=== PATIENT | male | born 1940 | race Caucasian/White ===

== ENCOUNTER 2017-09-02 09:33 | Day surgery (SDC) | payer MEDICARE, OTHER ==
[~2017-09-02 09:33] MED LIST: Lactated Ringers 1,000 ML IV SCH; Sodium Chloride 0.9% 10 ML Syringe FLUSH PRN
[2017-09-02] MEDS ORDERED: Labetalol 100 MG/20 ML MDV IV ONE (13:18)
[2017-09-02] MEDS ORDERED: Propofol 200 MG/20 ML SDV IV ONE (13:18)
[2017-09-02 14:36] VITALS: BP 142/62
--- NOTE | 2017-09-03 09:17 | OR ---
DATE OF OPERATION: 09/02/2017 SURGEON: Crow Dasilva MD PREOPERATIVE DIAGNOSIS: Cataract, left eye. POSTOPERATIVE DIAGNOSIS: Cataract, left eye. OPERATION PERFORMED: Phacoemulsification of cataract left eye with placement of Mackenzie, model ZCB00, 20.5 diopter, foldable, posterior chamber intraocular lens. DESIGN LEADER: None. DESCRIPTION OF PROCEDURE: Peribulbar anesthetic was performed using a mixture of 2% lidocaine with W[place]ase. The patient was prepped and draped in the usual fashion. A 3 mm fornix based conjunctival flap was performed at the 10 o'clock position. Hemostasis was obtained using diathermy, and a 2.8 mm grooved near clear corneal incision was then made. A stab incision was made into the anterior chamber at the 12 o'clock position and a second stab wound incision was made underlying the grooved near clear corneal incision. Viscoat was instilled into the anterior chamber, and a continuous tear capsulotomy was performed. Hydrodissection was accomplished with balanced salt solution and the nucleus was removed in a divide and conquer fashion. The remaining cortical material was removed with the irrigation and aspiration unit. Viscoat was instilled into the anterior chamber, and an ANTONIO, Mackenzie, model ZCB00, 20.5 diopter, foldable, posterior chamber intraocular lens was placed into the capsular bag, the haptics being positioned at the 1 and 7 o'clock positions. The residual Viscoat was removed from the anterior chamber and the anterior chamber reformed with balanced salt solution. The wound was checked and noted to be watertight. The conjunctiva was secured in its original position with diathermy. Alphagan and Maxitrol Ointment were then placed into the patient's eye. The patient tolerated the procedure well and it was without complication. Elapsed phacoemulsification time was 51.9 seconds. Postoperative instructions as related to activities as well as medications were reviewed with the patient. The patient was instructed to return to see me on the day following surgery for the first postoperative check. The patient was also instructed to contact me prior to that time if the patient were to have any problems. /[id number] DEG/MODL CC: TANGELA REHMAN MD, [facility]
== END 2017-09-02 14:50 | disposition home or self-care (01) ==
LOC: FB.SDS 09:33
PROVIDERS: ATTEND Ophthalmology
DX: H26.9 Unspecified cataract (principal); E11.22 Type 2 diabetes mellitus with diabetic chronic kidney disease; N18.3 Chronic kidney disease, stage 3 (moderate); F41.9 Anxiety disorder, unspecified; G89.29 Other chronic pain; M54.5 Low back pain; I73.9 Peripheral vascular disease, unspecified; E78.5 Hyperlipidemia, unspecified; I25.10 Atherosclerotic heart disease of native coronary artery without angina pectoris; Z90.49 Acquired absence of other specified parts of digestive tract; Z98.890 Other specified postprocedural states; Z88.0 Allergy status to penicillin; Z88.8 Allergy status to other drugs, medicaments and biological substances; Z79.899 Other long term (current) drug therapy; Z87.891 Personal history of nicotine dependence; J30.2 Other seasonal allergic rhinitis
CPT/HCPCS: 66984; 82962; A4217; C1780; J2704; J7120; 00142-QZ

== ENCOUNTER 2017-10-07 07:34 | Day surgery (SDC) | payer MEDICARE, OTHER ==
[~2017-10-07 07:34] MED LIST changes: -Sodium Chloride 0.9% 10 ML Syringe FLUSH PRN
[2017-10-07] MEDS ORDERED: Sodium Chloride 0.9% 10 ML Syringe FLUSH PRN (08:30)
[2017-10-07] MEDS ORDERED: Propofol 200 MG/20 ML SDV IV ONE (09:15)
[2017-10-07 10:42] VITALS: BP 132/67
--- NOTE | 2017-10-08 10:28 | OR ---
DATE OF OPERATION: 10/07/2017 SURGEON: Crow Dasilva MD PREOPERATIVE DIAGNOSIS: Cataract, right eye. POSTOPERATIVE DIAGNOSIS: Cataract, right eye. PROCEDURES: Phacoemulsification of cataract, right eye with the placement of an Mackenzie, model ZCB00, 20.5 diopter, foldable, posterior chamber intraocular lens. STORE PROMOTER: None. DESCRIPTION OF PROCEDURE: Peribulbar anesthetic was performed using a mixture of 2% lidocaine with Wydase. The patient was prepped and draped in the usual fashion. A 3 mm fornix based conjunctival flap was performed at the 10 o'clock position. Hemostasis was obtained using diathermy, and a 2.8 mm grooved near clear corneal incision was then made. A stab incision was made into the anterior chamber at the 12 o'clock position and a second stab wound incision was made underlying the grooved near clear corneal incision. Viscoat was instilled into the anterior chamber, and a continuous tear capsulotomy was performed. Hydrodissection was accomplished with balanced salt solution, and the nucleus was removed in a divide and conquer fashion. The remaining cortical material was removed with the irrigation and aspiration unit. Viscoat was instilled into the anterior chamber, and an Mackenzie, model ZCB00, 20.5 diopter, foldable, posterior chamber intraocular lens was placed into the capsular bag, the haptics being positioned at the 1 and 7 o'clock positions. The residual Viscoat was removed from the anterior chamber and the anterior chamber reformed with balanced salt solution. The wound was checked and noted to be watertight. The conjunctiva was secured in its original position with diathermy. Alphagan and Maxitrol Ointment were then placed into the patient's eye. The patient tolerated the procedure well and it was without complication. Elapsed phacoemulsification time was 21.6 seconds. Postoperative instructions as related to activities, as well as medications, were reviewed with the patient. The patient was instructed to return to see me on the day following surgery for the first postoperative check. The patient was also instructed to contact me prior to that time if the patient were to have any problems. ADDENDUM: Because of the patient's borderline pupillary dilation, as a result of usage of Flomax, 0.2 mL of a mixture of phenylephrine, lidocaine, and balanced salt solution were instilled into the anterior chamber. This helped to maintain adequate pupillary dilation throughout the course of the surgery. /[id number] DEG/MODL CC: TANGELA REHMAN PA-C MTDD
== END 2017-10-07 10:49 | disposition home or self-care (01) ==
LOC: FB.SDS 07:34
PROVIDERS: ATTEND Ophthalmology
DX: H26.9 Unspecified cataract (principal); I25.10 Atherosclerotic heart disease of native coronary artery without angina pectoris; I73.9 Peripheral vascular disease, unspecified; F41.9 Anxiety disorder, unspecified; E78.5 Hyperlipidemia, unspecified; E11.22 Type 2 diabetes mellitus with diabetic chronic kidney disease; N18.3 Chronic kidney disease, stage 3 (moderate); Z90.49 Acquired absence of other specified parts of digestive tract; Z95.820 Peripheral vascular angioplasty status with implants and grafts; Z79.82 Long term (current) use of aspirin; Z79.899 Other long term (current) drug therapy; Z87.891 Personal history of nicotine dependence; J30.2 Other seasonal allergic rhinitis
CPT/HCPCS: 00142; 66984; 82962; C1780; J2704; J7120

== ENCOUNTER 2017-11-04 12:43 | Observation (INO) | payer MEDICARE, OTHER ==
[2017-11-04] MEDS ORDERED: Sodium Chloride 0.9% 10 ML Syringe FLUSH PRN (12:53)
--- NOTE | 2017-11-04 12:53 | EDM.PDOC ---
ED HPI GENERAL MEDICAL PROBLEM - General Stated Complaint: SYNCOPE Time Seen by Provider: 11/04/17 12:43 Source of Information: Reports: Patient, EMS, Family History Limitations: Reports: Physical Impairment - History of Present Illness INITIAL COMMENTS - FREE TEXT/NARRATIVE: 77 years old w m with metabolic syndrome, DM, Obesity, HTN, H/O caritid stenosis, came by EMS to the ed after he passed out at the while at his eye doctor's office having holding his head backwards and to the side. Pt was not responding for about 1-2 minutes, (witnessed) was present. Pt was ashen jimenez and pale as he arrived her in the ed. BP was 116/67 pulse 60 temp 36.4 O2 sat 92% on RA. No C/P, not diaphoretic. ECG showed a NSR with ST depression 1 mm ant lat leads. No other acute medical issues at time time. Onset: Today Onset Date: 11/04/17 Onset Time: 12:00 Duration: Minutes:, Intermittent Location: Reports: Generalized Quality: Reports: Other (passed out) Severity: Moderate Improves with: Reports: Rest Worsens with: Reports: Movement Context: Reports: Other (Passed out while at he ophtalmologist's office) Associated Symptoms: Reports: Syncope, Weakness, Other (pale) - Related Data Allergies Allergy/AdvReac Type Severity Reaction Status Date / Time ezetimibe [From Zetia] Allergy Muscle Verified 11/04/17 12:49 Aches hydrocodone Allergy Hallucinati Verified 11/04/17 12:49 ons oxycodone Allergy Hallucinati Verified 11/04/17 12:49 ons Penicillins Allergy Swelling Verified 11/04/17 12:49 Usquyex-Moj-Fzu Reductase Allergy Muscle Verified 11/04/17 12:49 Inhibitor Aches Home Meds: Home Meds Allopurinol [Zyloprim] 150 mg PO BEDTIME 01/06/15 [History] Celecoxib [CeleBREX] 200 mg PO DAILY PRN 01/06/15 [History] Desoximetasone [Topicort 0.05% Gel] 1 applic TOP TID PRN 01/06/15 [History] Esomeprazole [NexIUM] 40 mg PO DAILY 01/06/15 [History] Ibuprofen/Diphenhydramine Cit [Advil PM Caplet] 2 tab PO BEDTIME 01/06/15 [ History] Pramoxine HCl/Mineral Oil/Znox [Tucks Hemorrhoidal Ointment] 28.3 gm RC ASDIRECTED 01/06/15 [History] Sertraline [Zoloft] 25 mg PO BEDTIME 01/06/15 [History] Sucralfate [Carafate] 1 tsp PO DAILY PRN 01/06/15 [History] glyBURIDE [Glyburide] 5 mg PO BEDTIME 01/06/15 [History] valACYclovir [Valtrex] 500 mg PO BID PRN 01/06/15 [History] Carvedilol [Coreg] 12.5 mg PO BID 09/01/17 [History] Clopidogrel [Plavix] 37.5 mg PO DAILY 09/01/17 [History] Isosorbide Mononitrate [Imdur] 30 mg PO DAILY 09/01/17 [History] Losartan [Cozaar] 25 mg PO DAILY 09/01/17 [History] Pioglitazone [Actos] 30 mg PO DAILY 09/01/17 [History] Triamcinolone Acetonide [Triamcinolone Acetonide 0.1% Crm] 1 applic TOP TID PRN 09/01/17 [History] Aspirin [Low Dose Aspirin EC] 81 mg PO DAILY 11/04/17 [History] LORazepam 0.5 mg PO BEDTIME 11/04/17 [History] LORazepam 0.5 mg PO DAILY@2130 11/04/17 [History] Oxymetazoline HCl [Dristan] 1 spray NASBOTH BEDTIME 11/04/17 [History] Super Beta Prostate 0.5 tab PO BEDTIME 11/04/17 [History] Super Beta Prostate 1 tab PO DAILY 11/04/17 [History] Past Medical History HEENT History: Reports: Allergic Rhinitis, Cataract Cardiovascular History: Reports: CAD, Heart Failure, High Cholesterol, Hypertension, RI, PVD, Other (See Below) Other Cardiovascular History: MITRIAL REGURG Gastrointestinal History: Reports: Colon Polyp, PUD Genitourinary History: Reports: Chronic Renal Insuffiency, Renal Disease Other Genitourinary History: CKD, RENAL ARTERY STENOSIS 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 Musculoskeletal History: Reports: Back Pain, Chronic, Gout Other Musculoskeletal History: DJD Psychiatric History: Reports: Anxiety Endocrine/Metabolic History: Reports: Diabetes, Type II Hematologic History: Reports: Iron Deficiency Immunologic History: Reports: None Dermatologic History: Reports: Eczema, Other (See Below) Other Dermatologic History: RECURRENT HERPES LABIALIS - Past Surgical History HEENT Surgical History: Reports: Adenoidectomy, Tonsillectomy Cardiovascular Surgical History: Reports: Carotid Endarterectomy, Coronary Artery Bypass Other Cardiovascular Surgeries/Procedures: ANGIOPLASTY 2015 IN SEPT AND 0CT, ALSO 2016 GI Surgical History: Reports: Appendectomy, Colonoscopy, EGD Musculoskeletal Surgical History: Reports: Hip Replacement, ORIF Social & Family History - Tobacco Use Smoking Status *Q: Former Smoker Used Tobacco, but Quit: Yes Month Tobacco Last Used: 1998 - Alcohol Use Days Per Week of Alcohol Use: 0 - Recreational Drug Use Recreational Drug Use: No ED ROS GENERAL - Review of Systems Review Of Systems: See Below Constitutional: Reports: Weakness, Decreased Appetite HEENT: Reports: No Symptoms Respiratory: Reports: No Symptoms Cardiovascular: Reports: Blood Pressure Problem, Lightheadedness, Syncope Endocrine: Reports: High Glucose GI/Abdominal: Reports: No Symptoms : Reports: No Symptoms Musculoskeletal: Reports: No Symptoms Skin: Reports: Pallor Neurological: Reports: Syncope Psychiatric: Reports: No Symptoms Hematologic/Lymphatic: Reports: No Symptoms Immunologic: Reports: No Symptoms - Physical Exam Exam: See Below Exam Limited By: Physical Impairment General Appearance: Alert, WD/WN, Moderate Distress Eye Exam: Bilateral Eye: Normal Inspection (pale sclera) Ears: Normal External Exam Nose: Normal Inspection Throat/Mouth: Normal Lips, Normal Gums, No Airway Compromise Head Exam: Atraumatic, Normocephalic Neck: Carotid Bruit, Limited Range of Motion, Other (surgical scar r neck, ant aspect) Respiratory/Chest: No Respiratory Distress Cardiovascular: Normal Peripheral Pulses, Regular Rate, Rhythm, No Edema GI/Abdominal: Normal Bowel Sounds (Male) Exam: Deferred Rectal (Males) Exam: Normal Exam, Normal Rectal Tone, Other (quiac stool neg) Neuro Exam (Abbreviated): Alert, Oriented, CN II-XII Intact, Normal Cognition, Abnormal Gait (due to weakness) Back Exam: Normal Inspection, Full Range of Motion Extremities: Normal Inspection, Normal Range of Motion Psychiatric: Normal Affect, Normal Mood Skin Exam: Warm, Dry, Intact, Pallor EKG INTERPRETATION EKG Date: 11/04/17 Time: 12:55 Rhythm: NSR Rate (Beats/Min): 55 [place]: Normal P-Wave: Present QRS: Normal ST-T: Depressed QT: Normal Comparison: NA - No Prior EKG Course - Vital Signs Text/Narrative:: 77 years old w m with metabolic syndrome, DM, Obesity, CAD, HTN, H/O caritid stenosis, came by EMS to the ed after he passed out at the while at his eye doctor's office having holding his head backwards and to the side. No CP. Pt was not responding for about 1-2 minutes, (witnessed) was present. Pt was ashen jimenez and pale as he arrived her in the ed. BP was 116/67 pulse 60 temp 36.4 O2 sat 92% on RA. No C/P, not diaphoretic. ECG showed a NSR with ST depression 1 mm ant lat leads. No old ECG. No other acute medical issues at time time. PE: Pale, weak Labs: Quiac stool neg, brown stool HGB 7.6, TIBC, VIT 12 and ferritin level are pending. PRO BNP 3729 Impression: Syncopal episode, Anemia, NIDDM, CAD, H/O carotid stenosis, CHF Tx: NS. Protonix, T&C and 1 unit of blood was ordered 2.01 pm Consultation: Dr. Mahoney, Hospitalist: Accepted pt for admission, OBS with tele, 1 unit of PRBC only Reexam: Improved Plan: Admit to OBS tele Last Recorded V/S: Last Vital Signs Temp 36.6 C 11/05/17 08:00 Pulse 84 11/05/17 08:00 Resp 20 11/05/17 08:00 BP 124/56 L 11/05/17 10:41 Pulse Ox 98 11/05/17 08:00 - Orders/Labs/Meds Labs: Laboratory Tests 11/04/17 11/04/17 11/04/17 Range/Units 13:05 13:05 13:05 WBC 6.9 (4.5-12.0) X10-3/uL RBC 3.37 L (4.30-5.75) x10(6)uL Hgb 7.6 L (11.5-15.5) g/dL Hct 24.2 L (30.0-51.3) % MCV 71.7 L (80-96) fL MCH 22.6 L (27.7-33.6) pg MCHC 31.5 L (32.2-35.4) g/dL RDW 16.3 H (11.5-15.5) % Plt Count 300 (125-369) X10(3)uL MPV 7.3 L (7.4-10.4) fL Neut % (Auto) 72.8 (46-82) % Lymph % (Auto) 16.2 (13-37) % [place] % (Auto) 8.0 (4-12) % Eos % (Auto) 3 (1.0-5.0) % Baso % (Auto) 1 (0-2) % Neut # (Auto) 5.1 (1.6-8.3) # Lymph # (Auto) 1.1 (0.6-5.0) # [place] # (Auto) 0.5 (0.0-1.3) # Eos # (Auto) 0.2 (0.0-0.8) # Baso # (Auto) 0.0 (0.0-0.2) # PT 11.0 (8.7-11.1) INR 1.09 (0.89-1.13) Sodium 137 (135-145) mmol/L Potassium 4.1 (3.5-5.3) mmol/L Chloride 104 (100-110) mmol/L Carbon Dioxide 23 (21-32) mmol/L BUN 37 H (7-18) mg/dL Creatinine 1.8 H (0.70-1.30) mg/dL Est Cr Clr Drug Dosing 34.92 mL/min Estimated GFR (MDRD) 37 L (>60) BUN/Creatinine Ratio 20.6 H (9-20) Glucose 191 H (80-116) mg/dL Calcium 9.1 (8.6-10.2) mg/dL Iron (45-190) ug/dL TIBC (157-537) ug/dL Iron Saturation (15-55) % Unsaturated IBC (112-347) ug/dL Ferritin (11-450) ng/mL Total Bilirubin 0.4 (0.1-1.3) mg/dL Direct Bilirubin 0.06 L (0.10-0.20) mg/dL AST 16 (5-25) IU/L ALT 14 (12-36) U/L Alkaline Phosphatase 77 (56-112) IU/L Troponin I (<0.017-0.056) ng/mL NT-Pro-B Natriuret Pep (<=450) pg/mL Total Protein 6.9 (6.0-8.0) g/dL Albumin 3.3 (3.2-4.6) g/dL Amylase 57 (25-115) U/L Vitamin B12 (193-986) pg/mL Blood Type Gel Antibody Screen Crossmatch 11/04/17 11/04/17 11/04/17 Range/Units 13:05 13:05 13:05 WBC (4.5-12.0) X10-3/uL RBC (4.30-5.75) x10(6)uL Hgb (11.5-15.5) g/dL Hct (30.0-51.3) % MCV (80-96) fL MCH (27.7-33.6) pg MCHC (32.2-35.4) g/dL RDW (11.5-15.5) % Plt Count (125-369) X10(3)uL MPV (7.4-10.4) fL Neut % (Auto) (46-82) % Lymph % (Auto) (13-37) % [place] % (Auto) (4-12) % Eos % (Auto) (1.0-5.0) % Baso % (Auto) (0-2) % Neut # (Auto) (1.6-8.3) # Lymph # (Auto) (0.6-5.0) # [place] # (Auto) (0.0-1.3) # Eos # (Auto) (0.0-0.8) # Baso # (Auto) (0.0-0.2) # PT (8.7-11.1) INR (0.89-1.13) Sodium (135-145) mmol/L Potassium (3.5-5.3) mmol/L Chloride (100-110) mmol/L Carbon Dioxide (21-32) mmol/L BUN (7-18) mg/dL Creatinine (0.70-1.30) mg/dL Est Cr Clr Drug Dosing mL/min Estimated GFR (MDRD) (>60) BUN/Creatinine Ratio (9-20) Glucose (80-116) mg/dL Calcium (8.6-10.2) mg/dL Iron (45-190) ug/dL TIBC (157-537) ug/dL Iron Saturation (15-55) % Unsaturated IBC (112-347) ug/dL Ferritin (11-450) ng/mL Total Bilirubin (0.1-1.3) mg/dL Direct Bilirubin (0.10-0.20) mg/dL AST (5-25) IU/L ALT (12-36) U/L Alkaline Phosphatase (56-112) IU/L Troponin I 0.024 (<0.017-0.056) ng/mL NT-Pro-B Natriuret Pep 3729 H* (<=450) pg/mL Total Protein (6.0-8.0) g/dL Albumin (3.2-4.6) g/dL Amylase (25-115) U/L Vitamin B12 329 (193-986) pg/mL Blood Type A NEGATIVE Gel Antibody Screen Negative Crossmatch See Detail 11/04/17 11/04/17 Range/Units 13:05 13:05 WBC (4.5-12.0) X10-3/uL RBC (4.30-5.75) x10(6)uL Hgb (11.5-15.5) g/dL Hct (30.0-51.3) % MCV (80-96) fL MCH (27.7-33.6) pg MCHC (32.2-35.4) g/dL RDW (11.5-15.5) % Plt Count (125-369) X10(3)uL MPV (7.4-10.4) fL Neut % (Auto) (46-82) % Lymph % (Auto) (13-37) % [place] % (Auto) (4-12) % Eos % (Auto) (1.0-5.0) % Baso % (Auto) (0-2) % Neut # (Auto) (1.6-8.3) # Lymph # (Auto) (0.6-5.0) # [place] # (Auto) (0.0-1.3) # Eos # (Auto) (0.0-0.8) # Baso # (Auto) (0.0-0.2) # PT (8.7-11.1) INR (0.89-1.13) Sodium (135-145) mmol/L Potassium (3.5-5.3) mmol/L Chloride (100-110) mmol/L Carbon Dioxide (21-32) mmol/L BUN (7-18) mg/dL Creatinine (0.70-1.30) mg/dL Est Cr Clr Drug Dosing mL/min Estimated GFR (MDRD) (>60) BUN/Creatinine Ratio (9-20) Glucose (80-116) mg/dL Calcium (8.6-10.2) mg/dL Iron 17 L (45-190) ug/dL TIBC 341 (157-537) ug/dL Iron Saturation 5 L (15-55) % Unsaturated IBC 324 (112-347) ug/dL Ferritin 19 (11-450) ng/mL Total Bilirubin (0.1-1.3) mg/dL Direct Bilirubin (0.10-0.20) mg/dL AST (5-25) IU/L ALT (12-36) U/L Alkaline Phosphatase (56-112) IU/L Troponin I (<0.017-0.056) ng/mL NT-Pro-B Natriuret Pep (<=450) pg/mL Total Protein (6.0-8.0) g/dL Albumin (3.2-4.6) g/dL Amylase (25-115) U/L Vitamin B12 (193-986) pg/mL Blood Type Gel Antibody Screen Crossmatch Meds: Medications Discontinued Medications Generic Name Dose Route Start Last Admin Trade Name Freq PRN Reason Stop Dose Admin Allopurinol 150 mg 11/04/17 21:00 11/04/17 21:00 Zyloprim PO Not Given BEDTIME [facility] Aspirin 81 mg 11/05/17 09:00 11/05/17 10:33 Halfprin PO 81 mg DAILY [facility] Administration Carvedilol 12.5 mg 11/04/17 21:00 11/05/17 10:42 Coreg PO Not Given BID [facility] Celecoxib 200 mg 11/04/17 16:51 Celebrex PO DAILY PRN PAIN Clopidogrel Bisulfate 37.5 mg 11/05/17 09:00 11/05/17 10:42 Plavix PO Not Given DAILY ANGE Glyburide 5 mg 11/04/17 21:00 11/04/17 20:44 Micronase PO 5 mg BEDTIME ANGE Administration Sodium Chloride 1,000 mls @ 125 mls/hr 11/04/17 13:45 11/04/17 15:35 Normal Saline IV 50 mls/hr ASDIRECTED ANGE Infusion Sodium Chloride 1,000 mls @ 50 mls/hr 11/04/17 14:45 Normal Saline IV ASDIRECTED ANGE Sodium Chloride 250 mls @ 100 mls/hr 11/04/17 15:45 Normal Saline IV ASDIRECTED ANGE Pantoprazole Sodium 40 mg/ 100 mls @ 200 mls/hr 11/04/17 19:34 11/04/17 20:33 Sodium Chloride IV 11/04/17 20:03 200 mls/hr .BOLUS ONE Administration Isosorbide Mononitrate 30 mg 11/05/17 06:00 11/05/17 06:27 Imdur PO 30 mg DAILY@0600 ANGE Administration Lorazepam 0.5 mg 11/04/17 21:00 11/04/17 20:42 Ativan PO 0.5 mg BEDTIME ANGE Administration Losartan Potassium 25 mg 11/05/17 09:00 11/05/17 10:41 Cozaar PO 25 mg DAILY ANGE Administration Non-Formulary Medication 1 applic 11/04/17 16:51 Desoximetasone [Topicort 0.05% Gel] TOP TID PRN Rash Nexium 40mg *Ptom 0 mg 11/05/17 06:00 11/05/17 06:26 PO 40 mg DAILY@0600 ANGE Administration Advil Pm (Ibuprofen 0 tab 11/04/17 21:00 11/04/17 20:44 200mg/ PO 2 tab Diphenhydramine 38mg BEDTIME ANGE Administration ) Non-Formulary Medication 28.3 gm 11/04/17 17:00 Pramoxine Hcl/Mineral Oil/Znox [Tucks Hemorrhoidal Ointment] ASDIRECTED ANGE Non-Formulary Medication 1 tsp 11/04/17 16:51 Sucralfate [Carafate] PO DAILY PRN Gas Super Beta Prostate 0 tab 11/04/17 21:00 11/04/17 21:00 *Ptom PO 0.5 tab BEDTIME ANGE Administration Super Beta Prostate 0 tab 11/05/17 09:00 11/05/17 10:33 *Ptom PO 1 tab DAILY ANGE Administration Non-Formulary Medication 1 applic 11/04/17 16:51 Triamcinolone Acetonide [Triamcinolone Acetonide 0.1% Crm] TOP TID PRN Rash Ondansetron HCl 4 mg 11/04/17 14:06 Zofran IV Q4H PRN Nausea/Vomiting Oxymetazoline HCl 0 ml 11/04/17 21:00 11/04/17 20:40 Afrin Original 0.05% Nasal [place] GUEVARA 2 applic BEDTIME ANGE Administration Pantoprazole Sodium 40 mg 11/04/17 14:45 11/04/17 17:08 Protonix Iv IV 11/04/17 14:46 40 mg ONETIME ONE Administration Pioglitazone HCl 30 mg 11/05/17 09:00 11/05/17 10:31 Actos PO 30 mg DAILY ANGE Administration Sertraline HCl 25 mg 11/04/17 21:00 11/04/17 21:00 Zoloft PO 25 mg BEDTIME ANGE Administration Sodium Chloride 10 ml 11/04/17 12:53 Saline Flush FLUSH ASDIRECTED PRN Keep Vein Open Valacyclovir HCl 500 mg 11/05/17 17:00 Valtrex PO BID PRN COLD SORES Departure - Departure Time of Disposition: 16:00 Disposition: Admitted As Inpatient 65 Condition: Fair Clinical Impression: Syncopal episodes Qualifiers: Syncope type: vasovagal syncope Qualified Code(s): R55 - Syncope and collapse - Discharge Information
[2017-11-04] MEDS ORDERED: Sodium Chloride 0.9% 1,000 ML IV SCH ×2 (13:45→14:45)
[2017-11-04] MEDS ORDERED: Ondansetron 4 MG/2 ML SDV IV PRN (14:06)
[2017-11-04] MEDS ORDERED: Pantoprazole 40 MG in Sodium Chloride 0.9% 100 ML IV ONE ×2 (14:18→19:34)
[2017-11-04] MEDS ORDERED: Pantoprazole 40 MG Vial IV ONE (14:45)
[2017-11-04] MEDS ORDERED: Sodium Chloride 0.9% 250 ML IV SCH (15:45)
--- NOTE | 2017-11-04 16:47 | PCM.HP ---
H&P History of Present Illness - General Date of Service: 11/04/17 Admit Problem/Dx: Admission Diagnosis/Problem Admission Diagnosis/Problem Syncope Source of Information: Patient, Old Records - History of Present Illness Initial Comments - Free Text/Narative: 77-year-old male admitted through the emergency room because of syncope. He was having cataract surgery/check up and staying one position for a while when he got up he collapsed and fainted. He stated that he's had this before when he felt lightheaded in the similar position. Is being admitted for observation. He has a history of CAD, type 2 diabetes, iron deficiency anemia, chronic kidney disease, para been relatively stable. Hemoglobin is about 10.2. However emergency room it was found to be 7.9. He denies any bleeding areas attendances. It's been noted by the pharmacist and nursing staff that this noncontrast medications, taking the month we'll sometimes doubling up on some doses - Related Data Allergies/Adverse Reactions: Allergies Allergy/AdvReac Type Severity Reaction Status Date / Time ezetimibe [From Zetia] Allergy Muscle Verified 11/04/17 12:49 Aches hydrocodone Allergy Hallucinati Verified 11/04/17 12:49 ons oxycodone Allergy Hallucinati Verified 11/04/17 12:49 ons Penicillins Allergy Swelling Verified 11/04/17 12:49 Furhlev-Gns-Wmk Reductase Allergy Muscle Verified 11/04/17 12:49 Inhibitor Aches Home Medications: Home Meds Allopurinol [Zyloprim] 150 mg PO BEDTIME 01/06/15 [History] Celecoxib [CeleBREX] 200 mg PO DAILY PRN 01/06/15 [History] Desoximetasone [Topicort 0.05% Gel] 1 applic TOP TID PRN 01/06/15 [History] Esomeprazole [NexIUM] 40 mg PO DAILY 01/06/15 [History] Ibuprofen/Diphenhydramine Cit [Advil PM Caplet] 2 tab PO BEDTIME 01/06/15 [ History] Pramoxine HCl/Mineral Oil/Znox [Tucks Hemorrhoidal Ointment] 28.3 gm RC ASDIRECTED 01/06/15 [History] Sertraline [Zoloft] 25 mg PO BEDTIME 01/06/15 [History] Sucralfate [Carafate] 1 tsp PO DAILY PRN 01/06/15 [History] glyBURIDE [Glyburide] 5 mg PO BEDTIME 01/06/15 [History] valACYclovir [Valtrex] 500 mg PO BID PRN 01/06/15 [History] Carvedilol [Coreg] 12.5 mg PO BID 09/01/17 [History] Clopidogrel [Plavix] 37.5 mg PO DAILY 09/01/17 [History] Isosorbide Mononitrate [Imdur] 30 mg PO DAILY 09/01/17 [History] Losartan [Cozaar] 25 mg PO DAILY 09/01/17 [History] Pioglitazone [Actos] 30 mg PO DAILY 09/01/17 [History] Triamcinolone Acetonide [Triamcinolone Acetonide 0.1% Crm] 1 applic TOP TID PRN 09/01/17 [History] Aspirin [Low Dose Aspirin EC] 81 mg PO DAILY 11/04/17 [History] LORazepam 0.5 mg PO BEDTIME 11/04/17 [History] LORazepam 0.5 mg PO DAILY@2130 11/04/17 [History] Oxymetazoline HCl [Dristan] 1 spray NASBOTH BEDTIME 11/04/17 [History] Super Beta Prostate 0.5 tab PO BEDTIME 11/04/17 [History] Super Beta Prostate 1 tab PO DAILY 11/04/17 [History] Past Medical History HEENT History: Reports: Allergic Rhinitis, Cataract Cardiovascular History: Reports: CAD, Heart Failure, High Cholesterol, Hypertension, LA, PVD, Other (See Below) Other Cardiovascular History: MITRIAL REGURG Gastrointestinal History: Reports: Colon Polyp, PUD Genitourinary History: Reports: Chronic Renal Insuffiency, Renal Disease Other Genitourinary History: CKD, RENAL ARTERY STENOSIS 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 Musculoskeletal History: Reports: Back Pain, Chronic, Gout Other Musculoskeletal History: DJD Psychiatric History: Reports: Anxiety Endocrine/Metabolic History: Reports: Diabetes, Type II Hematologic History: Reports: Iron Deficiency Immunologic History: Reports: None Dermatologic History: Reports: Eczema, Other (See Below) Other Dermatologic History: RECURRENT HERPES LABIALIS - Infectious Disease History Infectious Disease History: Reports: Chicken Pox, Herpes, Measles, Mumps, Shingles - Past Surgical History HEENT Surgical History: Reports: Adenoidectomy, Tonsillectomy Cardiovascular Surgical History: Reports: Carotid Endarterectomy, Coronary Artery Bypass Other Cardiovascular Surgeries/Procedures: ANGIOPLASTY 2015 IN SEPT AND 0CT, ALSO 2016 GI Surgical History: Reports: Appendectomy, Colonoscopy, EGD Musculoskeletal Surgical History: Reports: Hip Replacement, ORIF Social & Family History - Family History Family Medical History: Noncontributory - Tobacco Use Smoking Status *Q: Former Smoker Used Tobacco, but Quit: Yes Month Tobacco Last Used: 1998 Second Hand Smoke Exposure: No - Caffeine Use Caffeine Use: Reports: Coffee Other Caffeine Use: 2-3 cups per day - Alcohol Use Days Per Week of Alcohol Use: 0 - Recreational Drug Use Recreational Drug Use: No H&P Review of Systems - Review of Systems: Review Of Systems: ROS reveals no pertinent complaints other than HPI. Exam - Exam Exam: See Below - Vital Signs Vital Signs: Last Vital Signs Temp 97.6 F 11/04/17 14:35 Pulse 68 11/04/17 14:35 Resp 16 11/04/17 14:35 BP 118/61 11/04/17 14:35 Pulse Ox 100 11/04/17 14:35 Weight: 99.79 kg - Exam General: Alert, Oriented, 4 HEENT: PERRLA, Hearing Intact, Mucosa Moist & Vass, Nares Patent, Normal Nasal Septum, Posterior Pharynx Clear, Conjunctiva Clear, EOMI, EACs Clear, TMs Clear Neck: Supple, Trachea Midline, 2 Lungs: Clear to Auscultation, Normal Respiratory Effort Cardiovascular: Regular Rate, Regular Rhythm GI/Abdominal Exam: Normal Bowel Sounds, Soft, Non-Tender, No Organomegaly, No Distention, No Abnormal Bruit, No Mass, Pelvis Stable (Male) Exam: No Hernia, Normal Inspection, Normal Prostate, Circumcised Rectal (Males) Exam: Normal Exam, Normal Rectal Tone, Prostate Normal Back Exam: Normal Inspection, Full Range of Motion, NT Extremities: Normal Inspection, Normal Range of Motion, Non-Tender, No Pedal Edema, Normal Capillary Refill Skin: Warm, Dry, Intact Neurological: Cranial Nerves Intact, Reflexes Equal Bilateral Neuro Extensive - Mental Status: Alert, Oriented x3, Normal Mood/Affect, Normal Cognition Neuro Extensive - Motor, Sensory, Reflexes: CN II-XII Intact, Normal Gait, Normal Reflexes Psychiatric: Alert, Normal Affect, Normal Mood - Patient Data Lab Results Last 24 hrs: Laboratory Results - last 24 hr 11/04/17 Range/Units 14:25 Urine Color Yellow (YELLOW) Urine Appearance Clear (CLEAR) Urine pH 5.0 (5.0-6.5) Ur Specific [place] 1.015 (1.010-1.025) Urine Protein Negative (NEGATIVE) mg/dL Urine Glucose (UA) Normal (NEGATIVE) mg/dL Urine Ketones Negative (NEGATIVE) mg/dL Urine Occult Blood Negative (NEGATIVE) Urine Nitrite Negative (NEGATIVE) Urine Bilirubin Small H (NEGATIVE) Urine Urobilinogen Normal (NEGATIVE) mg/dL Ur Leukocyte Esterase Negative (NEGATIVE) Urine RBC Not seen (0) Urine WBC 0-5 (0) Ur Squamous Epith Cells Few H (NS,R,O) Urine Bacteria Few H (NS) Hyaline Casts Moderate H (NS) Urine Mucus Few H (NS) Result Diagrams: 11/05/17 06:10 11/05/17 06:10 Fidel Results Last 24 hrs: Microbiology 11/04/17 14:30 Stool Occult Blood (FIDEL) - Final Stool / Feces NEGATIVE OCCULT BLOOD *Q Meaningful Use (ADM) - VTE *Q VTE Criteria *Q: - Stroke *Q Stroke Criteria *Q: - AMI *Q AMI Criteria *Q: - Problem List (1) Anemia SNOMED Code(s): 945457398 ICD Code: D64.9 - ANEMIA, UNSPECIFIED Status: Acute Current Visit: Yes (2) Syncope SNOMED Code(s): 920596112 ICD Code: R55 - SYNCOPE AND COLLAPSE Status: Acute Current Visit: Yes (3) CAD (coronary artery disease) SNOMED Code(s): 38136006 ICD Code: I25.10 - ATHSCL HEART DISEASE OF [place] CORONARY ARTERY W/O ANG PCTRS Status: Acute Current Visit: Yes (4) Anxiety SNOMED Code(s): 05304959 ICD Code: F41.9 - ANXIETY DISORDER, UNSPECIFIED Status: Acute Current Visit: Yes (5) CKD (chronic kidney disease) SNOMED Code(s): 674562475 ICD Code: N18.9 - CHRONIC KIDNEY DISEASE, UNSPECIFIED Status: Acute Current Visit: Yes (6) Carotid arterial disease SNOMED Code(s): 220960548 ICD Code: I77.9 - DISORDER OF ARTERIES AND ARTERIOLES, UNSPECIFIED Status: Acute Current Visit: Yes (7) Diabetes type 2, controlled SNOMED Code(s): 09123056 ICD Code: E11.9 - TYPE 2 DIABETES MELLITUS WITHOUT COMPLICATIONS Status: Acute Current Visit: Yes Qualifiers: Chronic kidney disease stage: stage 4 (severe) Problem List Initiated/Reviewed/Updated: Yes Orders Last 24hrs: Active Orders 24 hr Category Date Time Status FERRITIN [REF] Routine Lab 11/04/17 13:05 Received IRON AND IRON BINDING CAPACITY [REF] Routine Lab 11/04/17 13:05 Received RED BLOOD CELLS LP [BBK] Stat Lab 11/04/17 13:05 Results Sodium Chloride 0.9% [Normal Saline] 1,000 ml Med 11/04/17 14:45 Active IV ASDIRECTED Sodium Chloride 0.9% [Normal Saline] 250 ml Med 11/04/17 15:45 Active IV ASDIRECTED Transfuse PRBC [Transfuse Red Blood Cells] [COMM] Oth 11/04/17 15:44 Ordered Routine Medication Orders Sodium Chloride (Normal Saline) 1,000 mls @ 50 mls/hr IV ASDIRECTED ANGE Sodium Chloride (Normal Saline) 250 mls @ 100 mls/hr IV ASDIRECTED ANGE Ondansetron HCl (Zofran) 4 mg IV Q4H PRN PRN Reason: Nausea/Vomiting Sodium Chloride (Saline Flush) 10 ml FLUSH ASDIRECTED PRN PRN Reason: Keep Vein Open Assessment/Plan Comment:: Admit for observation with telemetry. I will give him one unit of blood, repeat a CBC the morning to resume his home medications.
[2017-11-04] MEDS ORDERED: Celecoxib 200 MG Cap PO PRN (16:51)
[2017-11-04] MEDS ORDERED: Non-Formulary Medication 1 Each (Triamcinolone Acetonide [Triamcinolone Acetonide 0.1% Crm TOP PRN (16:51)
[2017-11-04] MEDS ORDERED: DESOXIMETASONE TOP PRN (16:51)
[2017-11-04] MEDS ORDERED: SUCRALFATE PO PRN (16:51)
[2017-11-04] MEDS ORDERED: PRAMOXINE HCL RC SCH (17:00)
[2017-11-04] MEDS ORDERED: MINERAL OIL RC SCH (17:00)
[2017-11-04] MEDS ORDERED: ZINC OXIDE RC SCH (17:00)
[2017-11-04] MEDS ORDERED: [UNRECOGNIZED DRUG - OTHER] RC SCH (17:00)
[2017-11-04] MEDS: Carvedilol 12.5 MG Tab *PTOM PO SCH (20:43)
[2017-11-04] MEDS ORDERED: OXYMETAZOLINE 0.05% NAS SCH (21:00)
[2017-11-04] MEDS ORDERED: GLYBURIDE 5 MG PO SCH (21:00)
[2017-11-04] MEDS ORDERED: LORazepam 0.5 MG Tab PO SCH (21:00)
[2017-11-04] MEDS ORDERED: Non-Formulary Medication 1 Each (Fluticasone Propionate [Flonase] 1 SPRAY) NASBOTH SCH (21:00)
[2017-11-04] MEDS ORDERED: ADVIL PM PO SCH (21:00)
[2017-11-04] MEDS ORDERED: Sertraline 25 MG Tab *PTOM PO SCH (21:00)
[2017-11-04] MEDS ORDERED: Allopurinol 300 MG Tab *PTOM PO SCH (21:00)
[2017-11-04] MEDS ORDERED: SUPER BETA PROSTATE PO SCH (21:00)
[2017-11-05] MEDS ORDERED: Isosorbide Mononitrate 30 MG Tab.ER PO SCH (06:00)
[2017-11-05] MEDS ORDERED: NEXIUM 40 MG PO SCH (06:00)
--- NOTE | 2017-11-05 08:39 | PCM.PN ---
- General Info Date of Service: 11/05/17 Admission Dx/Problem (Free Text): Admission Diagnosis/Problem Admission Diagnosis/Problem Syncope Subjective Update: Patient did not sleep well because of the noise. He also also noted to have one black stool. Otherwise complains of no dizziness lightheadedness chest pain shortness of breath or any other bleeding areas. Functional Status: Reports: Pain Controlled, New Symptoms (black stool x1) - Review of Systems General: Reports: No Symptoms HEENT: Reports: No Symptoms Pulmonary: Reports: No Symptoms Cardiovascular: Reports: No Symptoms - Patient Data Vitals - Most Recent: Last Vital Signs Temp 98.7 F 11/05/17 04:00 Pulse 80 11/05/17 04:00 Resp 18 11/05/17 04:00 BP 159/68 H 11/05/17 06:27 Pulse Ox 98 11/05/17 04:00 Weight - Most Recent: 99.79 kg I&O - Last 24 Hours: Intake & Output 11/04/17 11/05/17 11/05/17 22:59 06:59 14:59 Intake Total 822 692 Output Total 350 700 Balance 472 -8 Lab Results Last 24 Hours: Laboratory Results - last 24 hr 11/04/17 11/05/17 11/05/17 Range/Units 14:25 06:10 06:10 WBC 7.9 (4.5-12.0) X10-3/uL RBC 3.52 L (4.30-5.75) x10(6)uL Hgb 8.3 L (11.5-15.5) g/dL Hct 25.5 L (30.0-51.3) % MCV 72.4 L (80-96) fL MCH 23.6 L (27.7-33.6) pg MCHC 32.7 (32.2-35.4) g/dL RDW 16.9 H (11.5-15.5) % Plt Count 280 (125-369) X10(3)uL MPV 7.5 (7.4-10.4) fL Neut % (Auto) 63.9 (46-82) % Lymph % (Auto) 23.3 (13-37) % Wallace % (Auto) 8.5 (4-12) % Eos % (Auto) 4 (1.0-5.0) % Baso % (Auto) 1 (0-2) % Neut # (Auto) 5.1 (1.6-8.3) # Lymph # (Auto) 1.8 (0.6-5.0) # Wallace # (Auto) 0.7 (0.0-1.3) # Eos # (Auto) 0.3 (0.0-0.8) # Baso # (Auto) 0.0 (0.0-0.2) # Sodium 138 (135-145) mmol/L Potassium 4.0 (3.5-5.3) mmol/L Chloride 105 (100-110) mmol/L Carbon Dioxide 24 (21-32) mmol/L BUN 32 H (7-18) mg/dL Creatinine 1.7 H (0.70-1.30) mg/dL Est Cr Clr Drug Dosing 36.98 mL/min Estimated GFR (MDRD) 39 L (>60) BUN/Creatinine Ratio 18.8 (9-20) Glucose 130 H (80-116) mg/dL Calcium 9.2 (8.6-10.2) mg/dL Urine Color Yellow (YELLOW) Urine Appearance Clear (CLEAR) Urine pH 5.0 (5.0-6.5) Ur Specific [place] 1.015 (1.010-1.025) Urine Protein Negative (NEGATIVE) mg/dL Urine Glucose (UA) Normal (NEGATIVE) mg/dL Urine Ketones Negative (NEGATIVE) mg/dL Urine Occult Blood Negative (NEGATIVE) Urine Nitrite Negative (NEGATIVE) Urine Bilirubin Small H (NEGATIVE) Urine Urobilinogen Normal (NEGATIVE) mg/dL Ur Leukocyte Esterase Negative (NEGATIVE) Urine RBC Not seen (0) Urine WBC 0-5 (0) Ur Squamous Epith Cells Few H (NS,R,O) Urine Bacteria Few H (NS) Hyaline Casts Moderate H (NS) Urine Mucus Few H (NS) Fidel Results Last 24 Hours: Microbiology 11/04/17 14:30 Stool Occult Blood (FIDEL) - Final Stool / Feces NEGATIVE OCCULT BLOOD Med Orders - Current: Current Medications Allopurinol (Zyloprim) 150 mg PO BEDTIME [facility] Last Admin: 11/04/17 21:00 Dose: Not Given Aspirin (Halfprin) 81 mg PO DAILY [facility] Carvedilol (Coreg) 12.5 mg PO BID [facility] Last Admin: 11/04/17 20:43 Dose: Not Given Celecoxib (Celebrex) 200 mg PO DAILY PRN PRN Reason: PAIN Clopidogrel Bisulfate (Plavix) 37.5 mg PO DAILY [facility] Glyburide (Micronase) 5 mg PO BEDTIME [facility] Last Admin: 11/04/17 20:44 Dose: 5 mg Sodium Chloride (Normal Saline) 1,000 mls @ 50 mls/hr IV ASDIRECTED ANGE Sodium Chloride (Normal Saline) 250 mls @ 100 mls/hr IV ASDIRECTED [facility] Isosorbide Mononitrate (Imdur) 30 mg PO DAILY@0600 [facility] Last Admin: 11/05/17 06:27 Dose: 30 mg Lorazepam (Ativan) 0.5 mg PO BEDTIME [facility] Last Admin: 11/04/17 20:42 Dose: 0.5 mg Losartan Potassium (Cozaar) 25 mg PO DAILY [facility] Non-Formulary Medication (Desoximetasone [Topicort 0.05% Gel]) 1 applic TOP TID PRN PRN Reason: Rash Nexium 40mg *Ptom 0 mg PO DAILY@0600 [facility] Last Admin: 11/05/17 06:26 Dose: 40 mg Advil Pm (Ibuprofen 200mg/Diphenhydramine 38mg ) 0 tab PO BEDTIME [facility] Last Admin: 11/04/17 20:44 Dose: 2 tab Non-Formulary Medication (Pramoxine Hcl/Mineral Oil/Znox [Tucks Hemorrhoidal Ointment]) 28.3 gm RC ASDIRECTED [facility] Non-Formulary Medication (Sucralfate [Carafate]) 1 tsp PO DAILY PRN PRN Reason: Gas Super Beta Prostate (*Ptom) 0 tab PO BEDTIME [facility] Last Admin: 11/04/17 21:00 Dose: 0.5 tab Super Beta Prostate (*Ptom) 0 tab PO DAILY [facility] Non-Formulary Medication (Triamcinolone Acetonide [Triamcinolone Acetonide 0.1% Crm]) 1 applic TOP TID PRN PRN Reason: Rash Ondansetron HCl (Zofran) 4 mg IV Q4H PRN PRN Reason: Nausea/Vomiting Oxymetazoline HCl (Afrin Original 0.05% Nasal [place]) 0 ml GUEVARA BEDTIME [facility] Last Admin: 11/04/17 20:40 Dose: 2 applic Pioglitazone HCl (Actos) 30 mg PO DAILY [facility] Sertraline HCl (Zoloft) 25 mg PO BEDTIME [facility] Last Admin: 11/04/17 21:00 Dose: 25 mg Sodium Chloride (Saline Flush) 10 ml FLUSH ASDIRECTED PRN PRN Reason: Keep Vein Open Valacyclovir HCl (Valtrex) 500 mg PO BID PRN PRN Reason: COLD SORES Discontinued Medications Sodium Chloride (Normal Saline) 1,000 mls @ 125 mls/hr IV ASDIRECTED ANGE Last Infusion: 11/04/17 15:35 Dose: 50 mls/hr Pantoprazole Sodium 40 mg/ (Sodium Chloride) 100 mls @ 200 mls/hr IV .BOLUS ONE Stop: 11/04/17 20:03 Last Admin: 11/04/17 20:33 Dose: 200 mls/hr Pantoprazole Sodium (Protonix Iv) 40 mg IV ONETIME ONE Stop: 11/04/17 14:46 Last Admin: 11/04/17 17:08 Dose: 40 mg - Exam Quality Assessment: No: Supplemental Oxygen General: Alert, Oriented HEENT: Pupils Equal, Pupils Reactive, EOMI, Mucous Membr. Moist/Brocket Neck: Supple Lungs: Clear to Auscultation, Normal Respiratory Effort Cardiovascular: Regular Rate, Regular Rhythm EKG INTERPRETATION Rhythm: NSR - Problem List & Annotations (1) Anemia SNOMED Code(s): 951744970 Code(s): D64.9 - ANEMIA, UNSPECIFIED Status: Acute Current Visit: Yes Qualifiers: Anemia type: due to chronic kidney disease Chronic kidney disease stage: stage 4 (severe) Qualified Code(s): N18.4 - Chronic kidney disease, stage 4 ( severe); D63.1 - Anemia in chronic kidney disease; D63.1 - Anemia in chronic kidney disease (2) Syncope SNOMED Code(s): 013751079 Code(s): R55 - SYNCOPE AND COLLAPSE Status: Acute Current Visit: Yes (3) CAD (coronary artery disease) SNOMED Code(s): 88050707 Code(s): I25.10 - ATHSCL HEART DISEASE OF [place] CORONARY ARTERY W/O ANG PCTRS Status: Acute Current Visit: Yes Qualifiers: Coronary Disease-Associated Artery/Lesion type: bypass graft (4) Anxiety SNOMED Code(s): 21273560 Code(s): F41.9 - ANXIETY DISORDER, UNSPECIFIED Status: Chronic Current Visit: Yes (5) CKD (chronic kidney disease) SNOMED Code(s): 054871653 Code(s): N18.9 - CHRONIC KIDNEY DISEASE, UNSPECIFIED Status: Chronic Current Visit: Yes Qualifiers: Chronic kidney disease stage: stage 4 (severe) Qualified Code(s): N18.4 - Chronic kidney disease, stage 4 (severe) (6) Carotid arterial disease SNOMED Code(s): 920659933 Code(s): I77.9 - DISORDER OF ARTERIES AND ARTERIOLES, UNSPECIFIED Status: Acute Current Visit: Yes Qualifiers: Laterality: unspecified laterality Qualified Code(s): I77.9 - Disorder of arteries and arterioles, unspecified (7) Diabetes type 2, controlled SNOMED Code(s): 73186434 Code(s): E11.9 - TYPE 2 DIABETES MELLITUS WITHOUT COMPLICATIONS Status: Acute Current Visit: Yes Qualifiers: Chronic kidney disease stage: stage 4 (severe) - Problem List Review Problem List Initiated/Reviewed/Updated: Yes - My Orders Last 24 Hours: My Active Orders 11/04/17 15:44 Transfuse PRBC [Transfuse Red Blood Cells] [COMM] Routine 11/04/17 15:45 Sodium Chloride 0.9% [Normal Saline] 250 ml IV ASDIRECTED 11/04/17 16:51 Celecoxib [CeleBREX] 200 mg PO DAILY PRN Desoximetasone [Topicort 0.05% Gel] 1 applic TOP TID PRN Sucralfate [Carafate] 1 tsp PO DAILY PRN Triamcinolone Acetonide [Triamcinolone Acetonide 0.1% Crm] 1 applic TOP TID PRN 11/04/17 17:00 Pramoxine HCl/Mineral Oil/Znox [Tucks Hemorrhoidal Ointment] 28.3 gm RC ASDIRECTED 11/04/17 21:00 Allopurinol [Zyloprim] 150 mg PO BEDTIME Carvedilol [Coreg] 12.5 mg PO BID Ibuprofen/Diphenhydramine Cit [Advil PM Caplet] 0 tab PO BEDTIME LORazepam [Ativan] 0.5 mg PO BEDTIME Oxymetazoline [Afrin Original 0.05% Nasal [place]] 0 ml GUEVARA BEDTIME Sertraline [Zoloft] 25 mg PO BEDTIME Super Beta Prostate 0 tab PO BEDTIME glyBURIDE [Micronase] 5 mg PO BEDTIME 11/05/17 06:00 Esomeprazole [NexIUM] 0 mg PO DAILY@0600 Isosorbide Mononitrate [Imdur] 30 mg PO DAILY@0600 11/05/17 09:00 Aspirin [Halfprin] 81 mg PO DAILY Clopidogrel [Plavix] 37.5 mg PO DAILY Losartan [Cozaar] 25 mg PO DAILY Pioglitazone [Actos] 30 mg PO DAILY Super Beta Prostate 0 tab PO DAILY 11/05/17 17:00 valACYclovir [Valtrex] 500 mg PO BID PRN - Plan Plan:: His hemoglobin has come up to above 8. I suspect he might have an upper GI ulcer , due to iron deficiency anemia. He might need further workup but as of now, has active bleeding right now.Had only one episode of black stool,but FOBT was negative. I will recommend iron supplementation but patient does not want them due to constipation. He states that he's had a colonoscopy,many of them, to be sure. I will have see his primary care physician early next week and return to the ED with any worsening symptoms.I feel that his syncope is vasovagal in nature. He is currently asymptomatic. He will go home on a PPI.
[2017-11-05] MEDS ORDERED: Aspirin 81 MG Tab.EC *PTOM PO SCH (09:00)
[2017-11-05] MEDS ORDERED: SUPER BETA PROSTATE PO SCH (09:00)
[2017-11-05] MEDS ORDERED: PIOGLITAZONE 30 MG PO SCH (09:00)
[2017-11-05] MEDS: Carvedilol 12.5 MG Tab *PTOM PO SCH ×2 (10:32→10:42)
[2017-11-05] MEDS: Clopidogrel 75 MG Tab *PTOM PO SCH ×2 (10:33→10:42)
[2017-11-05] MEDS: Losartan 25 MG Tab *PTOM PO SCH ×2 (10:33→10:41)
[2017-11-05 14:14] VITALS: BP 120/56
[2017-11-05] MEDS ORDERED: valACYclovir 500 MG Tab PO PRN (17:00)
[2017-11-05 21:25] LABS: UNSATURATED IRON BIND CAPACITY 324 ug/dL (112-347)
== END 2017-11-05 11:20 | disposition home or self-care (01) ==
LOC: FB.ED 12:43 → FB.MS 14:12
PROVIDERS: ADMIT Family Medicine; ATTEND Family Medicine
DX: E11.22 Type 2 diabetes mellitus with diabetic chronic kidney disease (principal); I12.9 Hypertensive chronic kidney disease with stage 1 through stage 4 chronic kidney disease, or unspecified chronic kidney disease; N18.4 Chronic kidney disease, stage 4 (severe); D63.1 Anemia in chronic kidney disease; R55 Syncope and collapse; I25.810 Atherosclerosis of coronary artery bypass graft(s) without angina pectoris; F41.9 Anxiety disorder, unspecified; I77.9 Disorder of arteries and arterioles, unspecified; Z88.0 Allergy status to penicillin; Z88.8 Allergy status to other drugs, medicaments and biological substances; Z79.82 Long term (current) use of aspirin; Z79.899 Other long term (current) drug therapy; Z95.5 Presence of coronary angioplasty implant and graft; Z90.49 Acquired absence of other specified parts of digestive tract; Z87.891 Personal history of nicotine dependence
CPT/HCPCS: 36415; 36430; 80048; 80076; 81001; 82150; 82272; 82607; 82728; 83540; 83550; 83880; 84484; 85025; 85610; 86850; 86900; 86901; 86920; 86922; 93005; 96374; 96376; 99285; A9270; C9113; G0378; J7030; J7040; P9016; 99217; 99220

== ENCOUNTER 2017-11-24 07:32 | Day surgery (SDC) | payer MEDICARE, OTHER ==
[~2017-11-24 07:32] MED LIST changes: +Sodium Chloride 0.9% 10 ML Syringe FLUSH PRN
[2017-11-24] MEDS ORDERED: Lidocaine 4% 5 ML Amp INJECT ONE (09:00)
[2017-11-24] MEDS ORDERED: Ondansetron 4 MG/2 ML SDV IVPUSH ONE (09:00)
[2017-11-24] MEDS ORDERED: Propofol 200 MG/20 ML SDV IV ONE (09:00)
[2017-11-24] MEDS ORDERED: Midazolam 1 MG/ML 2 ML SDV IV ONE (09:00)
--- NOTE | 2017-11-24 10:04 | PCM.OPNOTE ---
- General Post-Op/Procedure Note Date of Surgery/Procedure: 11/24/17 Operative Procedure(s): EGD with Biopsy and Colonoscopy with polyp removal Findings: No Ulcer or bleeding site seen Small Hiatal Hernia Moderate Left Colon Diverticulosis Small Cecal Polyp Pre Op Diagnosis: Anemia Post-Op Diagnosis: Hiatal Hernia. Diverticulosis of the colon. Cecal Polyp Anesthesia Technique: MAC Primary Surgeon: Elías Quintanilla Pathology: Gastric Antrum Cecal Polyp EBL in mLs: 2 Complications: None Condition: Good
[2017-11-24 11:32] VITALS: BP 131/69
--- NOTE | 2017-11-24 17:49 | HP ---
ADMISSION DATE: 11/24/2017 HISTORY OF PRESENT ILLNESS: This 77-year-old male is seen today for upper and lower endoscopy. He recently had a syncopal episode and was hospitalized with significant anemia, with a hemoglobin down to 7.9. He did receive 1 unit of transfusion. His hemoglobin has remained stable since then. He did notice some dark stools during the time of the syncopal episode, but has not had any since then. He also denies any abdominal pain or change in bowel pattern. The patient does occasionally have symptoms of heartburn, although none recently, and there is a remote history of peptic ulcer disease. PAST MEDICAL HISTORY: His past medical history is otherwise unchanged from his recent history and physical of about 3 weeks ago. He does have a history of coronary artery disease, diabetes, and chronic kidney disease. MEDICATIONS: He normally takes aspirin and Plavix, but has not taken these for a few days. He also normally takes Advil each evening. PAST SURGICAL HISTORY: He has had previous hip replacement surgery as well as coronary artery angioplasty on multiple occasions. PHYSICAL EXAMINATION: VITAL SIGNS: Currently, his temperature 98, pulse 83, blood pressure 130/58. Hemoglobin today is 8.8. GENERAL: He generally is an alerted adult in no acute distress and no contraindications to proceeding with upper and lower endoscopy are identified today. ASSESSMENT AND PLAN: I have discussed the proposed endoscopic procedures with the patient. He understands indications, options, and risks and he agrees to proceed. /[id number] IDALIA/MIGUELINA
--- NOTE | 2017-11-24 19:19 | OR ---
DATE OF OPERATION: 11/24/2017 SURGEON: Elías Quintanilla MD PREOPERATIVE DIAGNOSIS: Anemia. POSTOPERATIVE DIAGNOSES: 1. Hiatal hernia. 2. Diverticulosis of the colon. 3. Cecal polyp. OPERATIONS PERFORMED: Esophagogastroduodenoscopy with biopsy and colonoscopy with polyp removal. INDICATIONS FOR SURGERY: This 77-year-old male recently had a syncopal episode, and was noted to have significant anemia requiring transfusion. He also had dark stools at that time, and was referred for diagnostic upper and lower endoscopy. FINDINGS: On upper endoscopy, no ulcers or visible potential bleeding sites were seen. The patient does have a small hiatal hernia, but there does not appear to be any acute inflammation in the area visualized. The stomach and duodenum to the fourth portion otherwise appeared normal. On colonoscopy, the patient has a moderate degree of diverticulosis in the left colon, with several [id number] sized diverticula. These do not appear to be acutely inflamed, and no sign of bleeding is seen. The patient also has a small polyp in the cecum of approximately 5 mm in size. The remainder of the colon appears normal. PROCEDURE IN DETAIL: The patient was taken to the procedure room. He was given intravenous sedation and his throat was topically anesthetized. With the patient in the left lateral decubitus position, the esophagus was intubated with the Olympus gastroscope. This was carefully advanced under direct visualization through the esophagus, stomach, and duodenum where examination to the fourth portion was performed. Full examination of the duodenum was carried out, and then the scope was withdrawn into the stomach, where a complete exam including retroflexed examination of the fundus was performed. Random biopsies of the antrum were taken to rule out H. pylori. After the stomach was examined, the GE junction and esophagus were then examined as the scope was withdrawn. Attention was then turned to colonoscopy. Digital rectal exam was performed, showing no rectal masses. The Olympus colonoscope was inserted into the rectum. Retroflexed examination of the rectal canal was performed. The scope was then carefully advanced under direct visualization through the entire length of the colon until the cecum was reached. Cecal acquisition was confirmed by noting the light to transilluminate the abdominal wall in the right lower quadrant and visualizing the normal internal cecal anatomy including the appendiceal orifice and ileocecal valve. After examining the cecum, the scope was slowly withdrawn. In the cecum was noted the above described polyp. This was removed grossly in its entirety with multiple bites of the biopsy forceps. The scope was further withdrawn, re-examining all the colonic segments, and after the colon had been fully examined and with no sign of any complication, the scope was removed. CONDITION: The patient was taken from the operating room in satisfactory condition. ESTIMATED BLOOD LOSS: 2 mL. COMPLICATIONS: None. PROGNOSIS: Good. /[id number] IDALIA/MIGUELINA
== END 2017-11-24 11:50 | disposition home or self-care (01) ==
LOC: FB.SDS 07:32
PROVIDERS: ATTEND Surgery
DX: D12.0 Benign neoplasm of cecum (principal); K29.50 Unspecified chronic gastritis without bleeding; K57.30 Diverticulosis of large intestine without perforation or abscess without bleeding; K44.9 Diaphragmatic hernia without obstruction or gangrene; I25.10 Atherosclerotic heart disease of native coronary artery without angina pectoris; E11.22 Type 2 diabetes mellitus with diabetic chronic kidney disease; N18.9 Chronic kidney disease, unspecified; Z88.0 Allergy status to penicillin; Z88.8 Allergy status to other drugs, medicaments and biological substances; Z79.899 Other long term (current) drug therapy
CPT/HCPCS: 00813; 36415; 43239; 45380; 82962; 85027; 88305; 88342; J2250; J2405; J2704; J7120

== ENCOUNTER 2019-11-17 10:27 | Emergency (ER) | payer MEDICARE, OTHER ==
--- NOTE | 2019-11-17 12:21 | CR ---
INDICATION: Weakness, hypoglycemia. CHEST, ONE VIEW: An AP portable upright view of the chest x2 was obtained 11/17 - and was compared with 03/10/18. There appear to be pleuroparenchymal changes at the right lung bases which may be on the basis of pneumonia and pleuritis and possibly some atelectasis. A lateral decubitus view of the chest with the right side down may be helpful for further evaluation, as subpulmonic fluid may be present. The heart is enlarged, the aorta is tortuous with calcification in the arch. Post median sternotomy is noted. Overlying EKG leads are noted. No definite evidence of CHF is seen. The left lung and pleural space showed evidence of heavy markings at the lower lung field, which are of questionable significance and likely due to portable - less than full inspiration examination. Compared with [place] images from 03/10/18, there is a significant increase in pleuroparenchymal change at the right lung base. Findings may be on the basis of a chronic inflammatory process, but should be correlated clinically. IMPRESSION: 1. Pleuroparenchymal changes at the right lung base significantly more prominent than on the previous study of 03/10/18. Chronic inflammatory disease - pneumonia and pleuritis may be present, but should be correlated clinically. 2. ASHD with cardiomegaly. Report was called to Dr. Gabriel at 1153 hours. [facility]
--- NOTE | 2019-11-17 12:39 | EDM.PDOC ---
ED HPI GENERAL MEDICAL PROBLEM - General Stated Complaint: LOW BLOOD SUGAR Time Seen by Provider: 11/17/19 10:40 Source of Information: Reports: Patient History Limitations: Reports: No Limitations - History of Present Illness INITIAL COMMENTS - FREE TEXT/NARRATIVE: Patient presented to the ED because of a hypoglycemic episode with a BS of 36. He was given D50 en route here and by the time he arrived in the ED he is already AAO x3 but just want to be checked. He also c/o cough and cold but is already taking Zpak prescribed in the clinic. There is no associated fever, chills, except for weakness because he doesn't exercise at home. - Related Data Allergies Allergy/AdvReac Type Severity Reaction Status Date / Time ezetimibe [From Zetia] Allergy Muscle Verified 11/04/17 12:49 Aches hydrocodone Allergy Hallucinati Verified 11/04/17 12:49 ons oxycodone Allergy Hallucinati Verified 11/04/17 12:49 ons Penicillins Allergy Swelling Verified 11/04/17 12:49 Sopnvkk-Hdw-Lpc Reductase Allergy Muscle Verified 11/04/17 12:49 Inhibitor Aches Home Meds: Home Meds Desoximetasone [Topicort 0.05% Gel] 1 applic TOP TID PRN 01/06/15 [History] Esomeprazole [NexIUM] 40 mg PO DAILY 01/06/15 [History] Pramoxine HCl/Mineral Oil/Znox [Tucks Hemorrhoidal Ointment] 28.3 gm RC ASDIRECTED 01/06/15 [History] Sertraline [Zoloft] 25 mg PO BEDTIME 01/06/15 [History] Sucralfate [Carafate] 1 tsp PO DAILY PRN 01/06/15 [History] allopurinoL [Zyloprim] 150 mg PO BEDTIME 01/06/15 [History] glyBURIDE [Glyburide] 2.5 mg PO BEDTIME 01/06/15 [History] valACYclovir [Valtrex] 500 mg PO BID PRN 01/06/15 [History] Carvedilol [Coreg] 12.5 mg PO DAILY 09/01/17 [History] Clopidogrel [Plavix] 37.5 mg PO DAILY 09/01/17 [History] Isosorbide Mononitrate [Imdur] 30 mg PO DAILY 09/01/17 [History] Losartan [Cozaar] 25 mg PO DAILY 09/01/17 [History] Pioglitazone [Actos] 30 mg PO DAILY 09/01/17 [History] Triamcinolone Acetonide [Triamcinolone Acetonide 0.1% Crm] 1 applic TOP TID PRN 09/01/17 [History] Aspirin [Low Dose Aspirin EC] 81 mg PO DAILY 11/04/17 [History] LORazepam 0.5 - 1 mg PO ASDIRECTED PRN 11/04/17 [History] Oxymetazoline HCl [Dristan] 1 spray NASBOTH BEDTIME 11/04/17 [History] Super Beta Prostate 0.5 tab PO BEDTIME 11/04/17 [History] Super Beta Prostate 1 tab PO DAILY 11/04/17 [History] Fluticasone Propionate [Flonase] 1 spray NS DAILY 11/21/17 [History] Nitroglycerin [Nitrostat] 0.4 mg SL ASDIRECTED PRN 11/21/17 [History] glyBURIDE [Glyburide] 5 mg PO ACBREAKFAST 11/21/17 [History] Past Medical History HEENT History: Reports: Allergic Rhinitis, Cataract Cardiovascular History: Reports: CAD, Heart Failure, High Cholesterol, Hypertension, ID, PVD, Other (See Below) Other Cardiovascular History: MITRIAL REGURG Respiratory History: Reports: SOB Gastrointestinal History: Reports: Colon Polyp, PUD Genitourinary History: Reports: Chronic Renal Insuffiency, Renal Disease Other Genitourinary History: CKD, RENAL [employer] History: Reports: None Musculoskeletal History: Reports: Back Pain, Chronic, Gout Other Musculoskeletal History: DJD Psychiatric History: Reports: Anxiety Endocrine/Metabolic History: Reports: Diabetes, Type II Hematologic History: Reports: Iron Deficiency Immunologic History: Reports: None Dermatologic History: Reports: Eczema, Other (See Below) Other Dermatologic History: RECURRENT HERPES LABIALIS - Infectious Disease History Infectious Disease History: Reports: Chicken Pox, Herpes, Measles, Mumps, Shingles - Past Surgical History HEENT Surgical History: Reports: Adenoidectomy, Tonsillectomy Cardiovascular Surgical History: Reports: Carotid Endarterectomy, Coronary Artery Bypass Other Cardiovascular Surgeries/Procedures: ANGIOPLASTY 2015 IN SEPT AND 0CT, ALSO 2016 GI Surgical History: Reports: Appendectomy, Colonoscopy, EGD Musculoskeletal Surgical History: Reports: Hip Replacement, ORIF Social & Family History - Family History Family Medical History: Noncontributory - Caffeine Use Caffeine Use: Reports: Coffee Other Caffeine Use: 2-3 cups per day ED ROS GENERAL - Review of Systems Review Of Systems: See Below Constitutional: Reports: Weakness. Denies: Fever, Chills HEENT: Reports: No Symptoms Respiratory: Reports: Cough. Denies: Sputum Cardiovascular: Reports: No Symptoms Endocrine: Reports: No Symptoms GI/Abdominal: Reports: No Symptoms : Reports: No Symptoms Musculoskeletal: Reports: No Symptoms Skin: Reports: No Symptoms Neurological: Reports: No Symptoms Psychiatric: Reports: No Symptoms Hematologic/Lymphatic: Reports: No Symptoms ED EXAM, GENERAL - Physical Exam Exam: See Below Exam Limited By: No Limitations General Appearance: Alert, WD/WN, No Apparent Distress Ears: Normal External Exam, Normal Canal, Hearing Grossly Normal, Normal TMs Nose: Normal Inspection, Normal Mucosa, No Blood Throat/Mouth: Normal Inspection, Normal Lips, Normal Teeth, Normal Gums, Normal Oropharynx, Normal Voice Head: Atraumatic, Normocephalic Neck: Normal Inspection, Supple, Non-Tender, Full Range of Motion Respiratory/Chest: No Respiratory Distress, Lungs Clear, Normal Breath Sounds, No Accessory Muscle Use, Chest Non-Tender Cardiovascular: Normal Peripheral Pulses, Regular Rate, Rhythm, No Edema, No Gallop, No JVD, No Murmur, No Rub GI/Abdominal: Normal Bowel Sounds, Soft, Non-Tender, No Organomegaly, No Distention, No Abnormal Bruit, No Mass (Male) Exam: No Hernia, Normal Inspection Back Exam: Normal Inspection, Full Range of Motion Extremities: Normal Inspection, Normal Range of Motion Neurological: Alert, Oriented, CN II-XII Intact, Normal Cognition, Normal Gait, Normal Reflexes Psychiatric: Normal Affect Course - Vital Signs Text/Narrative:: labs/EKG/CXR was discussed with the patient and family and verbalized full understanding. His BS was 71 and was fed prior to discharge. He ambulated to the hallway without any difficulty. Last Recorded V/S: Last Vital Signs Temp 36.1 C 11/17/19 10:27 Pulse 68 11/17/19 10:27 Resp 18 11/17/19 10:27 BP 142/71 H 11/17/19 10:27 Pulse Ox 95 11/17/19 10:27 - Orders/Labs/Meds Orders: Active Orders 24 hr Category Date Time Status EKG Documentation Completion [RC] ASDIRECTED Care 11/17/19 10:41 Active Chest 1V Frontal [CR] Stat Exams 11/17/19 10:40 Taken EKG 12 Lead [EK] Routine Ther 11/17/19 10:40 Ordered Labs: Laboratory Tests 11/17/19 11/17/19 11/17/19 Range/Units 11:00 11:00 11:00 WBC 6.7 (4.5-12.0) X10-3/uL RBC 4.65 (4.30-5.75) x10(6)uL Hgb 13.1 L (13.5-17.8) g/dL Hct 40.6 D (30.0-51.3) % MCV 87.3 (80-96) fL MCH 28.1 (27.7-33.6) pg MCHC 32.2 (32.2-35.4) g/dL RDW 23.1 H (11.5-15.5) % Plt Count 149 (125-369) X10(3)uL MPV 7.6 (7.4-10.4) fL Neut % (Auto) 74.8 (46-82) % Lymph % (Auto) 11.8 L (13-37) % [place] % (Auto) 10.9 (4-12) % Eos % (Auto) 1 (1.0-5.0) % Baso % (Auto) 2 (0-2) % Neut # (Auto) 5.1 (1.6-8.3) # Lymph # (Auto) 0.8 (0.6-5.0) # [place] # (Auto) 0.7 (0.0-1.3) # Eos # (Auto) 0.0 (0.0-0.8) # Baso # (Auto) 0.1 (0.0-0.2) # Sodium 136 (135-145) mmol/L Potassium 4.2 (3.5-5.3) mmol/L Chloride 101 (100-110) mmol/L Carbon Dioxide 22 (21-32) mmol/L BUN 21 H D (7-18) mg/dL Creatinine 1.9 H (0.70-1.30) mg/dL Est Cr Clr Drug Dosing 32.02 mL/min Estimated GFR (MDRD) 34 L (>60) BUN/Creatinine Ratio 11.1 (9-20) Glucose 71 L (80-116) mg/dL Calcium 9.2 (8.6-10.2) mg/dL Total Bilirubin 2.1 H (0.1-1.3) mg/dL AST 32 H D (5-25) IU/L ALT 10 L D (12-36) U/L Alkaline Phosphatase 171 H (56-112) IU/L Creatine Kinase (60-160) IU/L Troponin I 0.025 (<0.017-0.056) ng/mL Total Protein 7.4 (6.0-8.0) g/dL Albumin 3.3 (3.2-4.6) g/dL Globulin 4.1 g/dL Albumin/Globulin Ratio 0.8 /06/29 Range/Units 11:00 WBC (4.5-12.0) X10-3/uL RBC (4.30-5.75) x10(6)uL Hgb (13.5-17.8) g/dL Hct (30.0-51.3) % MCV (80-96) fL MCH (27.7-33.6) pg MCHC (32.2-35.4) g/dL RDW (11.5-15.5) % Plt Count (125-369) X10(3)uL MPV (7.4-10.4) fL Neut % (Auto) (46-82) % Lymph % (Auto) (13-37) % [place] % (Auto) (4-12) % Eos % (Auto) (1.0-5.0) % Baso % (Auto) (0-2) % Neut # (Auto) (1.6-8.3) # Lymph # (Auto) (0.6-5.0) # [place] # (Auto) (0.0-1.3) # Eos # (Auto) (0.0-0.8) # Baso # (Auto) (0.0-0.2) # Sodium (135-145) mmol/L Potassium (3.5-5.3) mmol/L Chloride (100-110) mmol/L Carbon Dioxide (21-32) mmol/L BUN (7-18) mg/dL Creatinine (0.70-1.30) mg/dL Est Cr Clr Drug Dosing mL/min Estimated GFR (MDRD) (>60) BUN/Creatinine Ratio (9-20) Glucose (80-116) mg/dL Calcium (8.6-10.2) mg/dL Total Bilirubin (0.1-1.3) mg/dL AST (5-25) IU/L ALT (12-36) U/L Alkaline Phosphatase (56-112) IU/L Creatine Kinase 186 H (60-160) IU/L Troponin I (<0.017-0.056) ng/mL Total Protein (6.0-8.0) g/dL Albumin (3.2-4.6) g/dL Globulin g/dL Albumin/Globulin Ratio Departure - Departure Time of Disposition: 12:35 Disposition: Home, Self-Care 01 Condition: Good Clinical Impression: Hypoglycemia, Acute bronchitis - Discharge Information Instructions: Acute Bronchitis, Adult, Hypoglycemia, [id number] Referrals: PCP,Not In Area [Primary Care Provider] - Additional Instructions: please read discharge instructions on low blood sugar and acute bronchitis do not take your glyburide today continue your zpak until gone follow up with your doctor so you can be referred for a PT for strengthening exercise program that you can do at home Sepsis Event Note - Evaluation Sepsis Screening Result: No Definite Risk - Focused Exam Vital Signs: Vital Signs Temp Pulse Resp BP Pulse Ox 11/17/19 10:27 36.1 C 68 18 142/71 H 95 Date Exam was Performed: 11/17/19 Time Exam was Performed: 12:39 - My Orders Last 24 Hours: My Active Orders 11/17/19 10:40 Chest 1V Frontal [CR] Stat EKG 12 Lead [EK] Routine 11/17/19 10:41 EKG Documentation Completion [RC] ASDIRECTED - Assessment/Plan Last 24 Hours: My Active Orders 11/17/19 10:40 Chest 1V Frontal [CR] Stat EKG 12 Lead [EK] Routine 11/17/19 10:41 EKG Documentation Completion [RC] ASDIRECTED
[2019-11-17 13:18] VITALS: BP 160/58; PULSE 69
== END 2019-11-17 12:55 | disposition home or self-care (01) ==
LOC: FB.ED 10:27
DX: E11.649 Type 2 diabetes mellitus with hypoglycemia without coma (principal); J20.9 Acute bronchitis, unspecified; I25.2 Old myocardial infarction; I25.10 Atherosclerotic heart disease of native coronary artery without angina pectoris; I13.0 Hypertensive heart and chronic kidney disease with heart failure and stage 1 through stage 4 chronic kidney disease, or unspecified chronic kidney disease; E11.22 Type 2 diabetes mellitus with diabetic chronic kidney disease; N18.9 Chronic kidney disease, unspecified; I50.9 Heart failure, unspecified; F41.9 Anxiety disorder, unspecified; E11.36 Type 2 diabetes mellitus with diabetic cataract; Z88.8 Allergy status to other drugs, medicaments and biological substances; Z88.5 Allergy status to narcotic agent; Z88.0 Allergy status to penicillin; Z79.82 Long term (current) use of aspirin; Z79.84 Long term (current) use of oral hypoglycemic drugs; Z79.899 Other long term (current) drug therapy; Z95.1 Presence of aortocoronary bypass graft; Z79.02 Long term (current) use of antithrombotics/antiplatelets
CPT/HCPCS: 36415; 71045; 80053; 82550; 84484; 85025; 93005; 99285-25

== ENCOUNTER 2019-11-29 14:05 | Inpatient (IN) | payer MEDICARE, OTHER ==
[2019-11-29] MEDS ORDERED: Levofloxacin/Dextrose 5%-Water 500 MG in Premix Bag 1 BAG IV SCH (14:30)
[2019-11-29] MEDS: Sodium Chloride 0.9% 1,000 ML IV SCH (15:00)
[2019-11-29] MEDS: Sodium Chloride 0.9% 10 ML Syringe FLUSH PRN (15:01)
[2019-11-29] MEDS ORDERED: Nitroglycerin 0.4 MG Tab.SL SL PRN (17:12)
[2019-11-29] MEDS: Tamsulosin 0.4 MG Cap.ER PO SCH (18:30)
[2019-11-29] MEDS: Allopurinol 300 MG Tab PO SCH (18:30)
--- NOTE | 2019-11-29 19:07 | PCM.HP.2 ---
H&P History of Present Illness - General Date of Service: 11/29/19 Admit Problem/Dx: Admission Diagnosis/Problem Admission Diagnosis/Problem Pneumonia Source of Information: Patient, Provider History Limitations: Reports: No Limitations - History of Present Illness Initial Comments - Free Text/Narative: This is an 79-year-old male patient presented to [facility] at the clinic today for profound weakness and falls. He was evaluated and he had a skin abrasion on the right arm with possible cellulitis bruising on the buttocks and arms. He's had multiple falls. His states that he can only walk about 1012 steps and he has to sit down. He is to walk approximately 100 feet. He was seen in the ER for upper respiratory tract infection and no treatment was given. X- ray said possible pneumonia can't rule it out. That's when this all started. This started 2 weeks ago. He says his upper respiratory check infection is gone. He denies fevers, chills, cough. Dizzy short of breath when he walks. He denies dysuria, pyuria, hematuria. He has some urinary continence. He denies abdominal pain or diarrhea or constipation - Related Data Allergies/Adverse Reactions: Allergies Allergy/AdvReac Type Severity Reaction Status Date / Time ezetimibe [From Zetia] Allergy Muscle Verified 11/29/19 14:54 Aches hydrocodone Allergy Hallucinati Verified 11/29/19 14:54 ons oxycodone Allergy Hallucinati Verified 11/29/19 14:54 ons Penicillins Allergy Hives Verified 11/29/19 14:54 Xzqweht-Tbj-Qht Reductase Allergy Muscle Verified 11/29/19 14:54 Inhibitor Aches Home Medications: Home Meds Esomeprazole [NexIUM] 40 mg PO DAILY 01/06/15 [History] allopurinoL [Zyloprim] 150 mg PO WITHDINNER 01/06/15 [History] glyBURIDE [Glyburide] 2.5 mg PO BEDTIME 01/06/15 [History] Isosorbide Mononitrate [Imdur] 30 mg PO DAILY 09/01/17 [History] LORazepam 1 mg PO BEDTIME 11/04/17 [History] Nitroglycerin [Nitrostat] 0.4 mg SL Q5M PRN 11/21/17 [History] glyBURIDE [Glyburide] 5 mg PO ACBREAKFAST 11/21/17 [History] Betamethasone/Clotrimazole [Lotrisone] 1 applic TOP BID 11/29/19 [History] Escitalopram Oxalate [Lexapro] 20 mg PO DAILY 11/29/19 [History] Ibuprofen/Diphenhydramine Cit [Advil Pm Caplet] 2 tab PO BEDTIME 11/29/19 [ History] Metoprolol Succinate [Toprol XL 100mg] 100 mg PO BEDTIME 11/29/19 [History] Tamsulosin [Flomax] 0.4 mg PO WITHDINNER 11/29/19 [History] Past Medical History HEENT History: Reports: Allergic Rhinitis, Cataract Cardiovascular History: Reports: CAD, Heart Failure, High Cholesterol, Hypertension, MD, PVD, Other (See Below) Other Cardiovascular History: MITRIAL REGURGITATION Respiratory History: Reports: Bronchitis, Recurrent Gastrointestinal History: Reports: Colon Polyp, PUD Genitourinary History: Reports: Chronic Renal Insuffiency, Renal Disease Other Genitourinary History: CKD, RENAL [employer] History: Reports: None Musculoskeletal History: Reports: Back Pain, Chronic, Gout Other Musculoskeletal History: DJD Psychiatric History: Reports: Anxiety, Depression Endocrine/Metabolic History: Reports: Diabetes, Type II Hematologic History: Reports: Iron Deficiency Immunologic History: Reports: None Dermatologic History: Reports: Cellulitis, Eczema, Other (See Below) Other Dermatologic History: RECURRENT HERPES LABIALIS - Infectious Disease History Infectious Disease History: Reports: Chicken Pox, Measles, Mumps - Past Surgical History HEENT Surgical History: Reports: Adenoidectomy, Tonsillectomy Cardiovascular Surgical History: Reports: Carotid Endarterectomy, Coronary Artery Bypass Other Cardiovascular Surgeries/Procedures: ANGIOPLASTY X 5 Respiratory Surgical History: Reports: None GI Surgical History: Reports: Appendectomy, Colonoscopy, EGD Male Surgical History: Reports: None Musculoskeletal Surgical History: Reports: Hip Replacement, ORIF Dermatological Surgical History: Reports: None Social & Family History - Family History Family Medical History: Noncontributory - Tobacco Use Smoking Status *Q: Former Smoker Used Tobacco, but Quit: No Second Hand Smoke Exposure: No - Caffeine Use Caffeine Use: Reports: Coffee Other Caffeine Use: 2-3 cups per day - Recreational Drug Use Recreational Drug Use: No H&P Review of Systems - Review of Systems: Review Of Systems: See Below General: Reports: Weakness HEENT: Reports: No Symptoms Pulmonary: Reports: Shortness of Breath. Denies: Wheezing, Cough, Sputum, Hemoptysis Cardiovascular: Reports: No Symptoms Gastrointestinal: Reports: No Symptoms Genitourinary: Reports: Other (Occasional incontinence) Musculoskeletal: Reports: No Symptoms Skin: Reports: Bruising, Other (Skin tear right upper arm) Psychiatric: Reports: No Symptoms Hematologic/Lymphatic: Reports: Easy Bruising Immunologic: Reports: No Symptoms Exam - Exam Exam: See Below - Vital Signs Vital Signs: Last Vital Signs Temp 97.8 F 11/29/19 14:30 Pulse 69 11/29/19 14:30 Resp 18 11/29/19 14:30 BP 141/65 H 11/29/19 14:30 Pulse Ox 98 11/29/19 14:30 Weight: 208 lb 12.8 oz - Exam General: Alert, Oriented, Cooperative HEENT: Hearing Intact, Mucosa Moist & [place], Posterior Pharynx Clear, TMs Clear Neck: Supple, Trachea Midline. No: Lymphadenopathy Lungs: Clear to Auscultation, Normal Respiratory Effort, Decreased Breath Sounds. No: Rales, Rhonchi, Rub Cardiovascular: Regular Rate, Regular Rhythm. No: Systolic Murmur GI/Abdominal Exam: Normal Bowel Sounds, Soft, Non-Tender, No Distention, No Mass Back Exam: Normal Inspection. No: CVA Tenderness (R), CVA Tenderness (L), Vertebral Tenderness Extremities: Normal Inspection, Normal Range of Motion, Pedal Edema Skin: Ecchymosis (Buttocks, groin, upper right arm. He has a 3 inch in tear with good granulation tissue.) Neurological: Normal Speech, Normal Tone Neuro Extensive - Mental Status: Alert, Oriented x3, Normal Mood/Affect, Normal Cognition Neuro Extensive - Motor, Sensory, Reflexes: No: Normal Gait Psychiatric: Alert, Normal Affect, Normal Mood - Patient Data Lab Results Last 24 hrs: Laboratory Results - last 24 hr 11/29/19 Range/Units 17:48 POC Glucose 128 H (80-116) mg/dL Imaging Impressions Last 24 hrs: Straight from the clinic and essentially shows a pneumonia right lower lobe. The labs did not come here because they sent him to [facility] pending. Sepsis Event Note - Focused Exam Vital Signs: Vital Signs Temp Pulse Resp BP Pulse Ox 11/29/19 14:30 97.8 F 69 18 141/65 H 98 Date Exam was Performed: 11/29/19 Time Exam was Performed: 19:02 - Problem List (1) Pneumonia of right lower lobe due to infectious organism SNOMED Code(s): 324361197, 186922560 ICD Code: J18.9 - PNEUMONIA, UNSPECIFIED ORGANISM Status: Acute Current Visit: Yes (2) Skin tear SNOMED Code(s): 958006083 ICD Code: EIE6484 - Status: Acute Current Visit: Yes (3) Weakness SNOMED Code(s): 27830529 ICD Code: R53.1 - WEAKNESS Status: Acute Current Visit: Yes (4) Frequent falls SNOMED Code(s): 714043089 ICD Code: R29.6 - REPEATED FALLS Status: Acute Current Visit: Yes (5) Dehydration SNOMED Code(s): 56379482 ICD Code: E86.0 - DEHYDRATION Status: Acute Current Visit: Yes (6) Palliative care status SNOMED Code(s): 612735501 ICD Code: Z51.5 - ENCOUNTER FOR PALLIATIVE CARE Status: Acute Current Visit: Yes (7) Diabetes type 2, controlled SNOMED Code(s): 87359718, 911298990 ICD Code: E11.9 - TYPE 2 DIABETES MELLITUS WITHOUT COMPLICATIONS Status: Acute Current Visit: No Qualifiers: Chronic kidney disease stage: stage 4 (severe) (8) CKD (chronic kidney disease) SNOMED Code(s): 342330751 ICD Code: N18.9 - CHRONIC KIDNEY DISEASE, UNSPECIFIED Status: Chronic Current Visit: No Qualifiers: Chronic kidney disease stage: stage 4 (severe) Qualified Code(s): N18.4 - Chronic kidney disease, stage 4 (severe) Problem List Initiated/Reviewed/Updated: Yes Orders Last 24hrs: Active Orders 24 hr Category Date Time Status Patient Status [ADT] Routine ADT 11/29/19 14:25 Active Accu Check [Blood Glucose Check, Bedside] [RC] BIDMEALS Care 11/29/19 17:13 Active Blood Glucose Check, Bedside [RC] 06,11,17 Care 11/29/19 14:25 Active Height and Weight [RC] DAILY Care 11/29/19 14:25 Active Intake and Output [RC] 06,14,22 Care 11/29/19 14:26 Active Oxygen Therapy [RC] PRN Care 11/29/19 14:25 Active Up With Assistance [RC] ASDIRECTED Care 11/29/19 14:25 Active VTE/DVT Education [RC] Per Unit Routine Care 11/29/19 14:25 Active Vital Signs [RC] 08,12,16,20,00,04 Care 11/29/19 14:25 Active OT Evaluation and Treatment [CONS] Routine Cons 11/29/19 14:25 Active PT Evaluation and Treatment [CONS] Routine Cons 11/29/19 14:25 Active Consistent Carbohydrate Diet [DIET] Diet 11/29/19 Dinner Active BASIC METABOLIC PANEL,BMP [CHEM] Routine Lab 11/29/19 16:43 Ordered CBC WITH AUTO DIFF [HEME] Routine Lab 11/29/19 16:43 Ordered CULTURE BLOOD [BC] Urgent Lab 11/29/19 14:50 Received CULTURE BLOOD [BC] Urgent Lab 11/29/19 14:55 Received CULTURE SPUTUM + SMEAR [RM] Routine Lab 11/29/19 19:00 Ordered Betamethasone/Clotrimazole [Lotrisone] Med 11/29/19 21:00 Active 0 gm TOP BID Enoxaparin [Lovenox] Med 11/29/19 14:30 Pending 30 mg SUBCUT Q24H Escitalopram [Lexapro] Med 11/30/19 09:00 Active 20 mg PO DAILY Ibuprofen/Diphenhydramine Cit [Advil Pm Caplet] Med 11/29/19 21:00 Pending 2 tab PO BEDTIME Isosorbide Mononitrate [Imdur] Med 11/30/19 09:00 Active 30 mg PO DAILY LORazepam [Ativan] Med 11/29/19 21:00 Active 1 mg PO BEDTIME Levofloxacin/Dextrose 5%-Water [Levaquin in D5W 500 MG/ Med 11/29/19 14:30 Active 100 ML] 500 mg Premix Bag 1 bag IV Q24H Metoprolol Succinate [Toprol XL] Med 11/29/19 21:00 Active 100 mg PO BEDTIME Nitroglycerin [Nitrostat] Med 11/29/19 17:12 Active 0.4 mg SL Q5M PRN Pantoprazole [ProTONIX] Med 11/30/19 07:30 Active 40 mg PO ACBREAKFAST Sodium Chloride 0.9% [Normal Saline] 1,000 ml Med 11/29/19 14:30 Active IV ASDIRECTED Sodium Chloride 0.9% [Saline Flush] Med 11/29/19 14:25 Active 10 ml FLUSH ASDIRECTED PRN Tamsulosin [Flomax] Med 11/29/19 18:00 Active 0.4 mg PO WITHDINNER allopurinoL [Zyloprim] Med 11/29/19 18:00 Active 150 mg PO WITHDINNER Blood Culture x2 Reflex Set [OM.PC] Urgent Oth 11/29/19 14:25 Ordered Peripheral IV Insertion Adult [OM.PC] Routine Oth 11/29/19 14:25 Ordered Resuscitation Status Routine Resus Stat 11/29/19 14:25 Ordered Medication Orders Allopurinol (Zyloprim) 150 mg PO WITHDINNER [facility] Last Admin: 11/29/19 18:30 Dose: 150 mg Betamethasone/Clotrimazole (Lotrisone) 0 gm TOP BID [facility] Enoxaparin Sodium (Lovenox) 30 mg SUBCUT Q24H [facility] Escitalopram Oxalate (Lexapro) 20 mg PO DAILY [facility] Sodium Chloride (Normal Saline) 1,000 mls @ 125 mls/hr IV ASDIRECTED [facility] Last Admin: 11/29/19 15:00 Dose: 125 mls/hr Levofloxacin/Dextrose 500 mg/ (Premix) 100 mls @ 100 mls/hr IV Q24H [facility] Last Admin: 11/29/19 14:58 Dose: 100 mls/hr Isosorbide Mononitrate (Imdur) 30 mg PO DAILY [facility] Lorazepam (Ativan) 1 mg PO BEDTIME [facility] Metoprolol Succinate (Toprol Xl) 100 mg PO BEDTIME [facility] Nitroglycerin (Nitrostat) 0.4 mg SL Q5M PRN PRN Reason: Chest Pain Non-Formulary Medication (Ibuprofen/Diphenhydramine Cit [Advil Pm Caplet]) 2 tab PO BEDTIME [facility] Pantoprazole Sodium (Protonix) 40 mg PO ACBREAKFAST [facility] Sodium Chloride (Saline Flush) 10 ml FLUSH ASDIRECTED PRN PRN Reason: Keep Vein Open Last Admin: 11/29/19 15:01 Dose: 10 ml Tamsulosin HCl (Flomax) 0.4 mg PO WITHDINNER [facility] Last Admin: 11/29/19 18:30 Dose: 0.4 mg Assessment/Plan Comment:: 1. Admit to inpatient. 2. Regular diabetic diet. 3. Hold his sulfonylurea and check Accu-Cheks twice a day. 4. Up with assist 5. PT/OT 6. Wound care to the right arm skin tear 7. Blood cultures and sputum cultures 8. CBC and panel 8 9. Levaquin IV renal dosing 10. Lovenox for DVT prophylaxis 11. Patient is a DNR. - Mortality Measure Prognosis:: Good
[2019-11-29] MEDS ORDERED: IBUPROFEN PO SCH (21:00)
[2019-11-29] MEDS ORDERED: DIPHENHYDRAMINE CIT PO SCH (21:00)
[2019-11-29] MEDS: Betamethasone Dipropionate/Clotrimazole 0.05-1% Crm 15 GM Tube TOP SCH (21:50)
[2019-11-29] MEDS: Metoprolol Succinate 100 MG Tab.ER PO SCH (21:51)
[2019-11-29] MEDS: Enoxaparin 40 MG/0.4 ML Syringe SUBCUT SCH (22:21)
[2019-11-29] MEDS: LORazepam 1 MG Tab PO SCH (22:21)
[2019-11-30] MEDS: Sodium Chloride 0.9% 1,000 ML IV SCH (00:19)
[2019-11-30] MEDS: Pantoprazole 40 MG Tab.CR PO SCH (06:55)
[2019-11-30] MEDS: Isosorbide Mononitrate 30 MG Tab.ER PO SCH (08:23)
[2019-11-30] MEDS: Escitalopram 20 MG Tab PO SCH (08:24)
[2019-11-30] MEDS: Betamethasone Dipropionate/Clotrimazole 0.05-1% Crm 15 GM Tube TOP SCH ×2 (08:24→21:05)
--- NOTE | 2019-11-30 08:52 | PCM.PN ---
- General Info Date of Service: 11/30/19 Admission Dx/Problem (Free Text): Patient says he feels about the same today. Little bit of cough. He denies shortness of breath, leg swelling, chest pain. His right arm is wrapped currently - Patient Data Vitals - Most Recent: Last Vital Signs Temp 98.0 F 11/30/19 00:00 Pulse 72 11/30/19 04:00 Resp 20 11/30/19 04:00 BP 149/77 H 11/30/19 08:23 Pulse Ox 96 11/30/19 04:00 Weight - Most Recent: 208 lb 1 oz I&O - Last 24 Hours: Intake & Output 11/29/19 11/30/19 11/30/19 22:59 06:59 14:59 Intake Total 833 950 290 Output Total 500 150 Balance 333 950 140 Lab Results Last 24 Hours: Laboratory Results - last 24 hr 11/29/19 11/29/19 11/29/19 Range/Units 14:55 14:55 17:48 WBC 6.8 (4.5-12.0) X10-3/uL RBC 4.19 L (4.30-5.75) x10(6)uL Hgb 12.2 L (13.5-17.8) g/dL Hct 36.5 (30.0-51.3) % MCV 87.3 (80-96) fL MCH 29.2 (27.7-33.6) pg MCHC 33.4 (32.2-35.4) g/dL RDW 21.7 H (11.5-15.5) % Plt Count 241 (125-369) X10(3)uL MPV 7.6 (7.4-10.4) fL Neut % (Auto) 74.9 (46-82) % Lymph % (Auto) 10.1 L (13-37) % [place] % (Auto) 12.2 H (4-12) % Eos % (Auto) 2 (1.0-5.0) % Baso % (Auto) 0 (0-2) % Neut # (Auto) 5.1 (1.6-8.3) # Lymph # (Auto) 0.7 (0.6-5.0) # [place] # (Auto) 0.8 (0.0-1.3) # Eos # (Auto) 0.2 (0.0-0.8) # Baso # (Auto) 0.0 (0.0-0.2) # Sodium 134 L (135-145) mmol/L Potassium 4.2 (3.5-5.3) mmol/L Chloride 99 L (100-110) mmol/L Carbon Dioxide 23 (21-32) mmol/L BUN 17 (7-18) mg/dL Creatinine 1.7 H (0.70-1.30) mg/dL Est Cr Clr Drug Dosing 36.35 mL/min Estimated GFR (MDRD) 39 L (>60) BUN/Creatinine Ratio 10.0 (9-20) Glucose 133 H (80-116) mg/dL POC Glucose 128 H (80-116) mg/dL Calcium 8.5 L (8.6-10.2) mg/dL 11/30/19 Range/Units 06:54 WBC (4.5-12.0) X10-3/uL RBC (4.30-5.75) x10(6)uL Hgb (13.5-17.8) g/dL Hct (30.0-51.3) % MCV (80-96) fL MCH (27.7-33.6) pg MCHC (32.2-35.4) g/dL RDW (11.5-15.5) % Plt Count (125-369) X10(3)uL MPV (7.4-10.4) fL Neut % (Auto) (46-82) % Lymph % (Auto) (13-37) % [place] % (Auto) (4-12) % Eos % (Auto) (1.0-5.0) % Baso % (Auto) (0-2) % Neut # (Auto) (1.6-8.3) # Lymph # (Auto) (0.6-5.0) # [place] # (Auto) (0.0-1.3) # Eos # (Auto) (0.0-0.8) # Baso # (Auto) (0.0-0.2) # Sodium (135-145) mmol/L Potassium (3.5-5.3) mmol/L Chloride (100-110) mmol/L Carbon Dioxide (21-32) mmol/L BUN (7-18) mg/dL Creatinine (0.70-1.30) mg/dL Est Cr Clr Drug Dosing mL/min Estimated GFR (MDRD) (>60) BUN/Creatinine Ratio (9-20) Glucose (80-116) mg/dL POC Glucose 108 (80-116) mg/dL Calcium (8.6-10.2) mg/dL Fidel Results Last 24 Hours: Microbiology 11/29/19 19:00 Gram Stain - Final Sputum - Expectorated Med Orders - Current: Current Medications Allopurinol (Zyloprim) 150 mg PO WITHDINNER [facility] Last Admin: 11/29/19 18:30 Dose: 150 mg Betamethasone/Clotrimazole (Lotrisone) 0 gm TOP BID [facility] Last Admin: 11/30/19 08:24 Dose: 1 applic Enoxaparin Sodium (Lovenox) 40 mg SUBCUT Q24H [facility] Last Admin: 11/29/19 22:21 Dose: 40 mg Escitalopram Oxalate (Lexapro) 20 mg PO DAILY [facility] Last Admin: 11/30/19 08:24 Dose: 20 mg Escitalopram Oxalate (Lexapro) 10 mg PO DAILY [facility] Levofloxacin/Dextrose 500 mg/ (Premix) 100 mls @ 100 mls/hr IV Q24H [facility] Last Admin: 11/29/19 14:58 Dose: 100 mls/hr Isosorbide Mononitrate (Imdur) 30 mg PO DAILY [facility] Last Admin: 11/30/19 08:23 Dose: 30 mg Lorazepam (Ativan) 1 mg PO BEDTIME [facility] Last Admin: 11/29/19 22:21 Dose: 1 mg Metoprolol Succinate (Toprol Xl) 100 mg PO BEDTIME [facility] Last Admin: 11/29/19 21:51 Dose: 100 mg Nitroglycerin (Nitrostat) 0.4 mg SL Q5M PRN PRN Reason: Chest Pain Pantoprazole Sodium (Protonix) 40 mg PO ACBREAKFAST [facility] Last Admin: 11/30/19 06:55 Dose: 40 mg Sodium Chloride (Saline Flush) 10 ml FLUSH ASDIRECTED PRN PRN Reason: Keep Vein Open Last Admin: 11/29/19 15:01 Dose: 10 ml Tamsulosin HCl (Flomax) 0.4 mg PO WITHDINNER [facility] Last Admin: 11/29/19 18:30 Dose: 0.4 mg Discontinued Medications Sodium Chloride (Normal Saline) 1,000 mls @ 125 mls/hr IV ASDIRECTED [facility] Last Admin: 11/30/19 00:19 Dose: 125 mls/hr - Exam General: Alert, Oriented, Cooperative Lungs: Normal Respiratory Effort, Decreased Breath Sounds (Right base left is clear). No: Crackles, Rales, Rhonchi Cardiovascular: Regular Rate, Regular Rhythm, No Murmurs Extremities: No Pedal Edema Skin: Other (Skin tear right arm no change) Sepsis Event Note - Evaluation Sepsis Screening Result: No Definite Risk - Focused Exam Vital Signs: Vital Signs Temp Pulse Pulse Resp BP BP Pulse Ox 11/30/19 08:23 149/77 H 11/30/19 04:00 72 20 134/70 96 11/30/19 00:00 98.0 F 76 20 130/72 97 11/29/19 21:51 74 124/70 Date Exam was Performed: 11/30/19 Time Exam was Performed: 08:50 - Problem List & Annotations (1) Pneumonia of right lower lobe due to infectious organism SNOMED Code(s): 885574882, 057698793 Code(s): J18.9 - PNEUMONIA, UNSPECIFIED ORGANISM Status: Acute Current Visit: Yes (2) Skin tear SNOMED Code(s): 447212972 Code(s): MWD1031 - Status: Acute Current Visit: Yes (3) Weakness SNOMED Code(s): 55395990 Code(s): R53.1 - WEAKNESS Status: Acute Current Visit: Yes (4) Frequent falls SNOMED Code(s): 663216351 Code(s): R29.6 - REPEATED FALLS Status: Acute Current Visit: Yes (5) Dehydration SNOMED Code(s): 52688610 Code(s): E86.0 - DEHYDRATION Status: Acute Current Visit: Yes (6) Palliative care status SNOMED Code(s): 222494692 Code(s): Z51.5 - ENCOUNTER FOR PALLIATIVE CARE Status: Acute Current Visit: Yes (7) Diabetes type 2, controlled SNOMED Code(s): 78055758, 214263379 Code(s): E11.9 - TYPE 2 DIABETES MELLITUS WITHOUT COMPLICATIONS Status: Acute Current Visit: No Qualifiers: Chronic kidney disease stage: stage 4 (severe) (8) CKD (chronic kidney disease) SNOMED Code(s): 327577864 Code(s): N18.9 - CHRONIC KIDNEY DISEASE, UNSPECIFIED Status: Chronic Current Visit: No Qualifiers: Chronic kidney disease stage: stage 4 (severe) Qualified Code(s): N18.4 - Chronic kidney disease, stage 4 (severe) - Problem List Review Problem List Initiated/Reviewed/Updated: Yes - My Orders Last 24 Hours: My Active Orders 11/29/19 14:25 Patient Status [ADT] Routine Blood Glucose Check, Bedside [RC] 06,11,17 Height and Weight [RC] 06 Oxygen Therapy [RC] PRN Up With Assistance [RC] ASDIRECTED VTE/DVT Education [RC] Per Unit Routine Vital Signs [RC] QSHIFT OT Evaluation and Treatment [CONS] Routine PT Evaluation and Treatment [CONS] Routine Sodium Chloride 0.9% [Saline Flush] 10 ml FLUSH ASDIRECTED PRN Blood Culture x2 Reflex Set [OM.PC] Urgent Peripheral IV Insertion Adult [OM.PC] Routine Resuscitation Status Routine 11/29/19 14:30 Levofloxacin/Dextrose 5%-Water [Levaquin in D5W 500 MG/100 ML] 500 mg Premix Bag 1 bag IV Q24H 11/29/19 14:50 CULTURE BLOOD [BC] Urgent 11/29/19 14:55 CULTURE BLOOD [BC] Urgent 11/29/19 17:12 Nitroglycerin [Nitrostat] 0.4 mg SL Q5M PRN 11/29/19 17:13 Accu Check [Blood Glucose Check, Bedside] [RC] BIDMEALS 11/29/19 18:00 Tamsulosin [Flomax] 0.4 mg PO WITHDINNER allopurinoL [Zyloprim] 150 mg PO WITHDINNER 11/29/19 19:00 CULTURE SPUTUM + SMEAR [RM] Routine 11/29/19 21:00 Betamethasone/Clotrimazole [Lotrisone] 0 gm TOP BID Enoxaparin [Lovenox] 40 mg SUBCUT Q24H LORazepam [Ativan] 1 mg PO BEDTIME Metoprolol Succinate [Toprol XL] 100 mg PO BEDTIME 11/29/19 Dinner Consistent Carbohydrate Diet [DIET] 11/30/19 07:30 Pantoprazole [ProTONIX] 40 mg PO ACBREAKFAST 11/30/19 08:38 Convert IV to Saline Lock [OM.PC] Routine 11/30/19 09:00 Escitalopram [Lexapro] 10 mg PO DAILY Escitalopram [Lexapro] 20 mg PO DAILY Isosorbide Mononitrate [Imdur] 30 mg PO DAILY - Assessment Assessment:: 1. DC IV fluids and saline lock IV. 2. Vitals every shift and DC IV and DC I and O. The patient is incontinent 3. PT/OT evaluation today. 4.. Retrieve labs and chest x-ray report from [facility]. - Plan Plan:: 1. Admit to inpatient. 2. Regular diabetic diet. 3. Hold his sulfonylurea and check Accu-Cheks twice a day. 4. Up with assist 5. PT/OT 6. Wound care to the right arm skin tear 7. Blood cultures and sputum cultures 8. CBC and panel 8 9. Levaquin IV renal dosing 10. Lovenox for DVT prophylaxis 11. Patient is a DNR.
[2019-11-30] MEDS: Escitalopram 10 MG Tab PO SCH (12:01)
[2019-11-30] MEDS: Levofloxacin/Dextrose 5%-Water 50 ML IV SCH (14:41)
[2019-11-30] MEDS: Sodium Chloride 0.9% 10 ML Syringe FLUSH PRN (14:41)
[2019-11-30] MEDS: Tamsulosin 0.4 MG Cap.ER PO SCH (19:41)
[2019-11-30] MEDS: Allopurinol 300 MG Tab PO SCH (19:41)
[2019-11-30] MEDS: LORazepam 1 MG Tab PO SCH (21:05)
[2019-11-30] MEDS: Enoxaparin 40 MG/0.4 ML Syringe SUBCUT SCH (21:06)
[2019-11-30] MEDS: Metoprolol Succinate 100 MG Tab.ER PO SCH (21:07)
[2019-12-01] MEDS: Pantoprazole 40 MG Tab.CR PO SCH (06:32)
[2019-12-01] MEDS: Isosorbide Mononitrate 30 MG Tab.ER PO SCH (09:32)
[2019-12-01] MEDS: Betamethasone Dipropionate/Clotrimazole 0.05-1% Crm 15 GM Tube TOP SCH ×2 (09:33→20:06)
[2019-12-01] MEDS: Escitalopram 10 MG Tab PO SCH (09:33)
[2019-12-01] MEDS: Escitalopram 20 MG Tab PO SCH (09:33)
[2019-12-01] MEDS: Levofloxacin/Dextrose 5%-Water 50 ML IV SCH (14:13)
[2019-12-01] MEDS: Sodium Chloride 0.9% 10 ML Syringe FLUSH PRN (15:15)
--- NOTE | 2019-12-01 16:38 | PCM.PN ---
- General Info Date of Service: 12/01/19 Admission Dx/Problem (Free Text): The patient states he is about the same. Has a little bit of cough but no shortness of breath, fevers or chills. He had a nosebleed last night and this really this morning. He denies chest pain. He has some leg swelling. - Patient Data Vitals - Most Recent: Last Vital Signs Temp 97.6 F 11/30/19 23:42 Pulse 72 11/30/19 23:42 Resp 18 11/30/19 23:42 BP 147/76 H 12/01/19 09:32 Pulse Ox 97 11/30/19 23:42 Weight - Most Recent: 214 lb 8 oz Lab Results Last 24 Hours: Laboratory Results - last 24 hr 11/30/19 12/01/19 12/01/19 Range/Units 17:51 06:14 06:14 WBC 6.2 (4.5-12.0) X10-3/uL RBC 4.06 L (4.30-5.75) x10(6)uL Hgb 11.8 L (13.5-17.8) g/dL Hct 35.6 (30.0-51.3) % MCV 87.6 (80-96) fL MCH 29.0 (27.7-33.6) pg MCHC 33.0 (32.2-35.4) g/dL RDW 21.6 H (11.5-15.5) % Plt Count 233 (125-369) X10(3)uL MPV 7.0 L (7.4-10.4) fL Neut % (Auto) 79.0 (46-82) % Lymph % (Auto) 9.4 L (13-37) % [place] % (Auto) 9.7 (4-12) % Eos % (Auto) 2 (1.0-5.0) % Baso % (Auto) 0 (0-2) % Neut # (Auto) 4.9 (1.6-8.3) # Lymph # (Auto) 0.6 (0.6-5.0) # [place] # (Auto) 0.6 (0.0-1.3) # Eos # (Auto) 0.1 (0.0-0.8) # Baso # (Auto) 0.0 (0.0-0.2) # Sodium 131 L (135-145) mmol/L Potassium 4.4 (3.5-5.3) mmol/L Chloride 99 L (100-110) mmol/L Carbon Dioxide 23 (21-32) mmol/L BUN 16 (7-18) mg/dL Creatinine 1.5 H (0.70-1.30) mg/dL Est Cr Clr Drug Dosing 41.19 mL/min Estimated GFR (MDRD) 45 L (>60) BUN/Creatinine Ratio 10.7 (9-20) Glucose 158 H (80-116) mg/dL POC Glucose 172 H (80-116) mg/dL Calcium 8.8 (8.6-10.2) mg/dL Total Bilirubin 1.9 H (0.1-1.3) mg/dL AST 21 D (5-25) IU/L ALT 12 D (12-36) U/L Alkaline Phosphatase 159 H (56-112) IU/L NT-Pro-B Natriuret Pep (<=450) pg/mL Total Protein 6.7 (6.0-8.0) g/dL Albumin 2.8 L (3.2-4.6) g/dL Globulin 3.9 g/dL Albumin/Globulin Ratio 0.7 12/01/ Range/Units 06:14 WBC (4.5-12.0) X10-3/uL RBC (4.30-5.75) x10(6)uL Hgb (13.5-17.8) g/dL Hct (30.0-51.3) % MCV (80-96) fL MCH (27.7-33.6) pg MCHC (32.2-35.4) g/dL RDW (11.5-15.5) % Plt Count (125-369) X10(3)uL MPV (7.4-10.4) fL Neut % (Auto) (46-82) % Lymph % (Auto) (13-37) % [place] % (Auto) (4-12) % Eos % (Auto) (1.0-5.0) % Baso % (Auto) (0-2) % Neut # (Auto) (1.6-8.3) # Lymph # (Auto) (0.6-5.0) # [place] # (Auto) (0.0-1.3) # Eos # (Auto) (0.0-0.8) # Baso # (Auto) (0.0-0.2) # Sodium (135-145) mmol/L Potassium (3.5-5.3) mmol/L Chloride (100-110) mmol/L Carbon Dioxide (21-32) mmol/L BUN (7-18) mg/dL Creatinine (0.70-1.30) mg/dL Est Cr Clr Drug Dosing mL/min Estimated GFR (MDRD) (>60) BUN/Creatinine Ratio (9-20) Glucose (80-116) mg/dL POC Glucose (80-116) mg/dL Calcium (8.6-10.2) mg/dL Total Bilirubin (0.1-1.3) mg/dL AST (5-25) IU/L ALT (12-36) U/L Alkaline Phosphatase (56-112) IU/L NT-Pro-B Natriuret Pep 00543 H* (<=450) pg/mL Total Protein (6.0-8.0) g/dL Albumin (3.2-4.6) g/dL Globulin g/dL Albumin/Globulin Ratio Fidel Results Last 24 Hours: Microbiology 11/29/19 14:50 Aerobic Blood Culture - Preliminary Blood - Venous NO GROWTH AFTER 2 DAYS Anaerobic Blood Culture - Preliminary NO GROWTH AFTER 2 DAYS 11/29/19 14:55 Aerobic Blood Culture - Preliminary Blood - Venous - Lab Draw NO GROWTH AFTER 2 DAYS Anaerobic Blood Culture - Preliminary NO GROWTH AFTER 2 DAYS 11/29/19 19:00 Gram Stain - Final Sputum - Expectorated Sputum Culture - Preliminary Gram Positive Cocci Med Orders - Current: Current Medications Acetaminophen/Diphenhydramine HCl (Tylenol Pm Extra Strength) 2 tab PO BEDTIME REPLACED BY [facility] Allopurinol (Zyloprim) 150 mg PO WITHDINNER REPLACED BY [facility] Last Admin: 11/30/19 19:41 Dose: 150 mg Betamethasone/Clotrimazole (Lotrisone) 0 gm TOP BID [facility]PL[facility] Last Admin: 12/01/19 09:33 Dose: 1 applic Escitalopram Oxalate (Lexapro) 20 mg PO DAILY [facility] Last Admin: 12/01/19 09:33 Dose: 20 mg Escitalopram Oxalate (Lexapro) 10 mg PO DAILY [facility] Last Admin: 12/01/19 09:33 Dose: 10 mg Levofloxacin/Dextrose (Levaquin In D5w 250 Mg/50 Ml) 50 mls @ 50 mls/hr IV Q24H REPLACED BY [facility] Last Admin: 12/01/19 14:13 Dose: 50 mls/hr Isosorbide Mononitrate (Imdur) 30 mg PO DAILY [facility] Last Admin: 12/01/19 09:32 Dose: 30 mg Lorazepam (Ativan) 1 mg PO BEDTIME [facility]PLAC[facility] Last Admin: 11/30/19 21:05 Dose: 1 mg Metoprolol Succinate (Toprol Xl) 100 mg PO BEDTIME [facility]PLACED [facility] Last Admin: 11/30/19 21:07 Dose: 100 mg Nitroglycerin (Nitrostat) 0.4 mg SL Q5M PRN PRN Reason: Chest Pain Pantoprazole Sodium (Protonix) 40 mg PO ACBREAKFAST REPLACED [facility] Last Admin: 12/01/19 06:32 Dose: 40 mg Sodium Chloride (Saline Flush) 10 ml FLUSH ASDIRECTED PRN PRN Reason: Keep Vein Open Last Admin: 12/01/19 15:15 Dose: 10 ml Tamsulosin HCl (Flomax) 0.4 mg PO WITHDINNER REPLACED [facility] Last Admin: 11/30/19 19:41 Dose: 0.4 mg Discontinued Medications Enoxaparin Sodium (Lovenox) 40 mg SUBCUT Q24H REPLACED BY [facility] Last Admin: 11/30/19 21:06 Dose: 40 mg Sodium Chloride (Normal Saline) 1,000 mls @ 125 mls/hr IV ASDIRECTED REPLACED BY [facility] Last Admin: 11/30/19 00:19 Dose: 125 mls/hr Levofloxacin/Dextrose 500 mg/ (Premix) 100 mls @ 100 mls/hr IV Q24H REPLACED BY [facility] Last Admin: 11/29/19 14:58 Dose: 100 mls/hr - Exam General: Alert, Oriented, Cooperative Lungs: Clear to Auscultation, Decreased Breath Sounds. No: Crackles, Rales, Rhonchi Cardiovascular: Regular Rate, Regular Rhythm, No Murmurs Extremities: Pedal Edema Skin: Other (Wound right upper forearm is drying up and healing nicely without drainage in good granulation tissue.) Sepsis Event Note - Evaluation Sepsis Screening Result: No Definite Risk - Focused Exam Vital Signs: Vital Signs BP 12/01/19 09:32 147/76 H Date Exam was Performed: 12/01/19 Time Exam was Performed: 16:35 - Problem List & Annotations (1) Pneumonia of right lower lobe due to infectious organism SNOMED Code(s): 133772086, 434868662 Code(s): J18.9 - PNEUMONIA, UNSPECIFIED ORGANISM Status: Acute Current Visit: Yes (2) Skin tear SNOMED Code(s): 878059118 Code(s): ROP1171 - Status: Acute Current Visit: Yes (3) Weakness SNOMED Code(s): 99847107 Code(s): R53.1 - WEAKNESS Status: Acute Current Visit: Yes (4) Frequent falls SNOMED Code(s): 986932906 Code(s): R29.6 - REPEATED FALLS Status: Acute Current Visit: Yes (5) Dehydration SNOMED Code(s): 87957663 Code(s): E86.0 - DEHYDRATION Status: Acute Current Visit: Yes (6) Palliative care status SNOMED Code(s): 004040581 Code(s): Z51.5 - ENCOUNTER FOR PALLIATIVE CARE Status: Acute Current Visit: Yes (7) Diabetes type 2, controlled SNOMED Code(s): 30407464, 585702318 Code(s): E11.9 - TYPE 2 DIABETES MELLITUS WITHOUT COMPLICATIONS Status: Acute Current Visit: No Qualifiers: Chronic kidney disease stage: stage 4 (severe) (8) CKD (chronic kidney disease) SNOMED Code(s): 610878871 Code(s): N18.9 - CHRONIC KIDNEY DISEASE, UNSPECIFIED Status: Chronic Current Visit: No Qualifiers: Chronic kidney disease stage: stage 4 (severe) Qualified Code(s): N18.4 - Chronic kidney disease, stage 4 (severe) - Problem List Review Problem List Initiated/Reviewed/Updated: Yes - My Orders Last 24 Hours: My Active Orders 12/01/19 21:00 Acetaminophen/Diphenhydramine [Tylenol PM Extra Strength] 2 tab PO BEDTIME - Plan Plan:: 1. Change Levaquin to by mouth. 2. BNP 3. Tylenol p.m. for sleep 4. Discuss with him and the family if they would like to see a consult about draining the pleural effusion.
[2019-12-01] MEDS: Tamsulosin 0.4 MG Cap.ER PO SCH (17:45)
[2019-12-01] MEDS: Allopurinol 300 MG Tab PO SCH (17:45)
[2019-12-01] MEDS: traMADol 50 MG Tab PO PRN (18:27)
[2019-12-01] MEDS: LORazepam 1 MG Tab PO SCH (20:05)
[2019-12-01] MEDS: Metoprolol Succinate 100 MG Tab.ER PO SCH (20:06)
[2019-12-01] MEDS ORDERED: Acetaminophen/Diphenhydramine 500-25 MG Tab PO SCH (21:00)
[2019-12-02] MEDS: Pantoprazole 40 MG Tab.CR PO SCH (06:29)
[2019-12-02] MEDS: traMADol 50 MG Tab PO PRN (06:32)
[2019-12-02 08:04] VITALS: BP 147/79; PULSE 63
[2019-12-02] MEDS ORDERED: Furosemide 40 MG Tab PO SCH (09:00)
[2019-12-02] MEDS ORDERED: Lisinopril 5 MG Tab PO SCH (09:30)
--- NOTE | 2019-12-02 09:30 | PCM.PN ---
- General Info Date of Service: 12/02/19 Admission Dx/Problem (Free Text): A shouldn't has no concerns today. His back pain is a little bit better. He denies shortness breath, wheezing, fevers. He still has leg swelling. - Patient Data Vitals - Most Recent: Last Vital Signs Temp 97.8 F 12/02/19 08:00 Pulse 63 12/02/19 08:00 Resp 18 12/02/19 08:00 BP 147/79 H 12/02/19 08:00 Pulse Ox 97 12/02/19 08:00 Weight - Most Recent: 214 lb 9.6 oz I&O - Last 24 Hours: Intake & Output 12/01/19 12/02/19 12/02/19 22:59 06:59 14:59 Intake Total 550 Output Total 600 Balance -50 Lab Results Last 24 Hours: Laboratory Results - last 24 hr 12/01/19 12/01/19 12/01/19 Range/Units 06:14 06:35 17:43 POC Glucose 182 H 159 H (80-116) mg/dL NT-Pro-B Natriuret Pep 30813 H* (<=450) pg/mL 12/02/19 Range/Units 06:20 POC Glucose 173 H (80-116) mg/dL NT-Pro-B Natriuret Pep (<=450) pg/mL Fidel Results Last 24 Hours: Microbiology 11/29/19 19:00 Gram Stain - Final Sputum - Expectorated Sputum Culture - Final Gemella Species 11/29/19 14:50 Aerobic Blood Culture - Preliminary Blood - Venous NO GROWTH AFTER 2 DAYS Anaerobic Blood Culture - Preliminary NO GROWTH AFTER 2 DAYS 11/29/19 14:55 Aerobic Blood Culture - Preliminary Blood - Venous - Lab Draw NO GROWTH AFTER 2 DAYS Anaerobic Blood Culture - Preliminary NO GROWTH AFTER 2 DAYS Med Orders - Current: Current Medications Allopurinol (Zyloprim) 150 mg PO WITHDINNER [facility] Last Admin: 12/01/19 17:45 Dose: 150 mg Betamethasone/Clotrimazole (Lotrisone) 0 gm TOP BID [facility] Last Admin: 12/01/19 20:06 Dose: 1 applic Escitalopram Oxalate (Lexapro) 20 mg PO DAILY [facility] Last Admin: 12/01/19 09:33 Dose: 20 mg Escitalopram Oxalate (Lexapro) 10 mg PO DAILY [facility] Last Admin: 12/01/19 09:33 Dose: 10 mg Furosemide (Lasix) 40 mg PO DAILY [facility] Isosorbide Mononitrate (Imdur) 30 mg PO DAILY [facility] Last Admin: 12/01/19 09:32 Dose: 30 mg Levofloxacin (Levaquin) 250 mg PO Q24H [facility] Lorazepam (Ativan) 1 mg PO BEDTIME [facility] Last Admin: 12/01/19 20:05 Dose: 1 mg Metoprolol Succinate (Toprol Xl) 100 mg PO BEDTIME [facility] Last Admin: 12/01/19 20:06 Dose: 100 mg Nitroglycerin (Nitrostat) 0.4 mg SL Q5M PRN PRN Reason: Chest Pain Pantoprazole Sodium (Protonix) 40 mg PO ACBREAKFAST [facility] Last Admin: 12/02/19 06:29 Dose: 40 mg Sodium Chloride (Saline Flush) 10 ml FLUSH ASDIRECTED PRN PRN Reason: Keep Vein Open Last Admin: 12/01/19 15:15 Dose: 10 ml Tamsulosin HCl (Flomax) 0.4 mg PO WITHDINNER [facility] Last Admin: 12/01/19 17:45 Dose: 0.4 mg Tramadol HCl (Ultram) 50 mg PO Q6H PRN PRN Reason: Pain Last Admin: 12/02/19 06:32 Dose: 50 mg Discontinued Medications Acetaminophen/Diphenhydramine HCl (Tylenol Pm Extra Strength) 2 tab PO BEDTIME [facility] Enoxaparin Sodium (Lovenox) 40 mg SUBCUT Q24H [facility] Last Admin: 11/30/19 21:06 Dose: 40 mg Sodium Chloride (Normal Saline) 1,000 mls @ 125 mls/hr IV ASDIRECTED [facility] Last Admin: 11/30/19 00:19 Dose: 125 mls/hr Levofloxacin/Dextrose 500 mg/ (Premix) 100 mls @ 100 mls/hr IV Q24H [facility] Last Admin: 11/29/19 14:58 Dose: 100 mls/hr Levofloxacin/Dextrose (Levaquin In D5w 250 Mg/50 Ml) 50 mls @ 50 mls/hr IV Q24H [facility] Last Admin: 12/01/19 14:13 Dose: 50 mls/hr - Exam General: Alert, Oriented, Cooperative Lungs: Clear to Auscultation, Normal Respiratory Effort, Decreased Breath Sounds Cardiovascular: Regular Rate, Regular Rhythm, No Murmurs Back Exam: Vertebral Tenderness (Thoracic lumbar region) Extremities: Pedal Edema Sepsis Event Note - Evaluation Sepsis Screening Result: No Definite Risk - Focused Exam Vital Signs: Vital Signs Temp Pulse Resp BP Pulse Ox 12/02/19 08:00 97.8 F 63 18 147/79 H 97 12/01/19 23:48 98.1 F 66 17 130/56 L 97 Date Exam was Performed: 12/02/19 Time Exam was Performed: 09:27 - Problem List & Annotations (1) Pneumonia of right lower lobe due to infectious organism SNOMED Code(s): 674680717, 362234462 Code(s): J18.9 - PNEUMONIA, UNSPECIFIED ORGANISM Status: Acute Current Visit: Yes (2) Skin tear SNOMED Code(s): 612185113 Code(s): GRB2990 - Status: Acute Current Visit: Yes (3) Weakness SNOMED Code(s): 13571712 Code(s): R53.1 - WEAKNESS Status: Acute Current Visit: Yes (4) Frequent falls SNOMED Code(s): 302562748 Code(s): R29.6 - REPEATED FALLS Status: Acute Current Visit: Yes (5) Dehydration SNOMED Code(s): 49903349 Code(s): E86.0 - DEHYDRATION Status: Acute Current Visit: Yes (6) Palliative care status SNOMED Code(s): 036788382 Code(s): Z51.5 - ENCOUNTER FOR PALLIATIVE CARE Status: Acute Current Visit: Yes (7) Diabetes type 2, controlled SNOMED Code(s): 82852493, 407850117 Code(s): E11.9 - TYPE 2 DIABETES MELLITUS WITHOUT COMPLICATIONS Status: Acute Current Visit: No Qualifiers: Chronic kidney disease stage: stage 4 (severe) (8) CKD (chronic kidney disease) SNOMED Code(s): 609299701 Code(s): N18.9 - CHRONIC KIDNEY DISEASE, UNSPECIFIED Status: Chronic Current Visit: No Qualifiers: Chronic kidney disease stage: stage 4 (severe) Qualified Code(s): N18.4 - Chronic kidney disease, stage 4 (severe) (9) Compression fracture SNOMED Code(s): 280046203 Code(s): SCX2773 - Status: Acute Current Visit: Yes (10) Congestive heart failure SNOMED Code(s): 80694482 Code(s): I50.9 - HEART FAILURE, UNSPECIFIED Status: Acute Current Visit: Yes - Problem List Review Problem List Initiated/Reviewed/Updated: Yes - My Orders Last 24 Hours: My Active Orders 12/01/19 17:46 Antiembolic Devices [RC] .Routine DALTON Hose [Antiembolic Hose] [OM.PC] Routine 12/01/19 17:47 traMADol [Ultram] 50 mg PO Q6H PRN 12/02/19 09:00 Furosemide [Lasix] 40 mg PO DAILY 12/02/19 09:26 Echo Comp wo Cont [US] Routine 12/02/19 09:30 lisinopriL [Prinivil] 5 mg PO DAILY 12/02/19 14:00 levoFLOXacin [Levaquin] 250 mg PO Q24H - Plan Plan:: 1. Able to review his back x-ray shows compression fractures since last x-ray suggests MRI. He does not want MRI although his family does so we will not do it at this time. 2. Start Lasix for his leg swelling. AcipHex okay to get a echo and he says okay. Start lisinopril 5 mg a day. Suspect CHF. 3. He does not want Thoracentesis of pleural effusion. 4. His and family says he gets thinking problems with hydrocodone and oxycodone. We'll try tramadol 50 4 times a day when necessary and watch his mentation. 5. PT/OT. 6. Consider swing bed if he qualifies.
[2019-12-02] MEDS: Escitalopram 10 MG Tab PO SCH (09:31)
[2019-12-02] MEDS: Isosorbide Mononitrate 30 MG Tab.ER PO SCH (09:32)
[2019-12-02] MEDS: Escitalopram 20 MG Tab PO SCH (09:32)
[2019-12-02] MEDS: Betamethasone Dipropionate/Clotrimazole 0.05-1% Crm 15 GM Tube TOP SCH (09:33)
--- NOTE | 2019-12-02 12:35 | PCM.SN ---
- Free Text/Narrative Note: The patient is approved for swing bed. We will transfer him for PT/OT.
--- NOTE | 2019-12-02 12:42 | PCM.DCSUM1 ---
Discharge Summary - Hospital Course Free Text/Narrative:: Hospital course-patient is menopausal on Levaquin 250 mg IV and given IV fluids. His wound on his right arm was treated and any discharge cleared up immediately and normal healing took place. Patient's x-ray was initially thought to be pneumonia per the provider but showed a pleural effusion on the right when I was able to get hold of it from the clinic. We stopped IV fluids and continued Levaquin and finally made it by mouth. Patient had PT/OT. His creatinine was slightly elevated sodium slightly low. GFR is 45. Receive the x -ray report from his back and he has multiple compression fractures some new from the last x-ray which I don't have. The presumed to be new. He is a frequent falls at home. His family wanted an MRI which I suggested that he deferred. Also recommended thoracentesis on the pleural effusion and he deferred that also. When he was more stable and started on Lasix because his proBNP was 42,101 and his legs were swollen. He does have history of CHF so he was okay with me getting an echocardiogram which is pending. We will switch him to swing bed. At a little bit of lisinopril 5 mg and titrate up as tolerated. Brief History: This is an 79-year-old male patient presented to [facility]o Vel[facility]quez at the clinic today for profound weakness and falls. He was evaluated and he had a skin abrasion on the right arm with possible cellulitis bruising on the buttocks and arms. He's had multiple falls. His states that he can only walk about 1012 steps and he has to sit down. He is to walk approximately 100 feet. He was seen in the ER for upper respiratory tract infection and no treatment was given. X-ray said possible pneumonia can't rule it out. That's when this all started. This started 2 weeks ago. He says his upper respiratory check infection is gone. He denies fevers, chills, cough. Dizzy short of breath when he walks. He denies dysuria, pyuria, hematuria. He has some urinary continence. He denies abdominal pain or diarrhea or constipation Diagnosis: Stroke: No - Discharge Data Discharge Date: 12/02/19 Discharge Disposition: DC/Tfer W/I Hosp To [place] [id number] Condition: Good - Referral to Home Health Primary Care Physician: AMAYA Givens - Discharge Diagnosis/Problem(s) (1) Pneumonia of right lower lobe due to infectious organism SNOMED Code(s): 229426810, 862576220 ICD Code: J18.9 - PNEUMONIA, UNSPECIFIED ORGANISM Status: Acute Current Visit: Yes (2) Skin tear SNOMED Code(s): 057002504 ICD Code: [id number] - Status: Acute Current Visit: Yes (3) Weakness SNOMED Code(s): 44568076 ICD Code: R53.1 - WEAKNESS Status: Acute Current Visit: Yes (4) Frequent falls SNOMED Code(s): 489705178 ICD Code: R29.6 - REPEATED FALLS Status: Acute Current Visit: Yes (5) Dehydration SNOMED Code(s): 48942507 ICD Code: E86.0 - DEHYDRATION Status: Acute Current Visit: Yes (6) Palliative care status SNOMED Code(s): 720034654 ICD Code: Z51.5 - ENCOUNTER FOR PALLIATIVE CARE Status: Acute Current Visit: Yes (7) Diabetes type 2, controlled SNOMED Code(s): 62990472, 200187440 ICD Code: E11.9 - TYPE 2 DIABETES MELLITUS WITHOUT COMPLICATIONS Status: Acute Current Visit: No Qualifiers: Chronic kidney disease stage: stage 4 (severe) (8) CKD (chronic kidney disease) SNOMED Code(s): 474111652 ICD Code: N18.9 - CHRONIC KIDNEY DISEASE, UNSPECIFIED Status: Chronic Current Visit: No Qualifiers: Chronic kidney disease stage: stage 4 (severe) Qualified Code(s): N18.4 - Chronic kidney disease, stage 4 (severe) (9) Compression fracture SNOMED Code(s): 443835049 ICD Code: [id number] - Status: Acute Current Visit: Yes (10) Congestive heart failure SNOMED Code(s): 28608501 ICD Code: I50.9 - HEART FAILURE, UNSPECIFIED Status: Acute Current Visit : Yes - Patient Summary/Data Consults: Consultations 11/29/19 14:25 OT Evaluation and Treatment [CONS] Routine Please Evaluate and Treat. OT Reason for Consult: ADL's This query below is only for informational purposes and is not editable. PT Evaluation and Treatment [CONS] Routine Please Evaluate and Treat. PT Reason for Consult: Ambulation This query below is only for informational purposes and is not editable. - Patient Instructions Diet: Diabetic Diet Activity: As Tolerated Driving: Do Not Drive Showering/Bathing: May Shower Other/Special Instructions: 1. Transfer to swing bed for PT/OT - Discharge Plan Home Medications: Home Meds Esomeprazole [NexIUM] 40 mg PO DAILY 01/06/15 [History] allopurinoL [Zyloprim] 150 mg PO WITHDINNER 01/06/15 [History] Isosorbide Mononitrate [Imdur] 30 mg PO DAILY 09/01/17 [History] LORazepam 1 mg PO BEDTIME 11/04/17 [History] Nitroglycerin [Nitrostat] 0.4 mg SL Q5M PRN 11/21/17 [History] glyBURIDE [Glyburide] 5 mg PO WITHDINNER 11/21/17 [History] Betamethasone/Clotrimazole [Lotrisone] 1 applic TOP BID 11/29/19 [History] Escitalopram Oxalate [Lexapro] 20 mg PO DAILY 11/29/19 [History] Ibuprofen/Diphenhydramine Cit [Advil Pm Caplet] 2 tab PO BEDTIME 11/29/19 [ History] Metoprolol Succinate [Toprol XL 100mg] 100 mg PO BEDTIME 11/29/19 [History] Tamsulosin [Flomax] 0.4 mg PO WITHDINNER 11/29/19 [History] Escitalopram Oxalate [Lexapro] 10 mg PO DAILY 11/30/19 [History] Furosemide [Lasix] 40 mg PO DAILY tablet 12/02/19 [Rx] levoFLOXacin [Levaquin] 250 mg PO Q24H tablet 12/02/19 [Rx] lisinopriL [Prinivil] 5 mg PO DAILY tablet 12/02/19 [Rx] traMADol [Ultram] 50 mg PO Q6H PRN tablet 12/02/19 [Rx] Patient Handouts: Fall Prevention in Hospitals, Adult, Venous Thromboembolism Prevention, Community-Acquired Pneumonia, Adult, [id number] - Discharge Summary/Plan Comment DC Time >30 min.: No - Patient Data Vitals - Most Recent: Last Vital Signs Temp 97.8 F 12/02/19 08:00 Pulse 63 12/02/19 08:00 Resp 18 12/02/19 08:00 BP 147/79 H 12/02/19 10:30 Pulse Ox 97 12/02/19 08:00 Weight - Most Recent: 214 lb 9.6 oz I&O - Last 24 hours: Intake & Output 12/01/19 12/02/19 12/02/19 22:59 06:59 14:59 Intake Total 550 Output Total 600 Balance -50 Lab Results - Last 24 hrs: Laboratory Results - last 24 hr 12/01/19 12/01/19 12/01/19 Range/Units 06:14 06:35 17:43 POC Glucose 182 H 159 H (80-116) mg/dL NT-Pro-B Natriuret Pep 43511 H* (<=450) pg/mL 12/02/19 Range/Units 06:20 POC Glucose 173 H (80-116) mg/dL NT-Pro-B Natriuret Pep (<=450) pg/mL MARQUES Results - Last 24 hrs: Microbiology 11/29/19 19:00 Gram Stain - Final Sputum - Expectorated Sputum Culture - Final Gemella Species 11/29/19 14:50 Aerobic Blood Culture - Preliminary Blood - Venous NO GROWTH AFTER 2 DAYS Anaerobic Blood Culture - Preliminary NO GROWTH AFTER 2 DAYS 11/29/19 14:55 Aerobic Blood Culture - Preliminary Blood - Venous - Lab Draw NO GROWTH AFTER 2 DAYS Anaerobic Blood Culture - Preliminary NO GROWTH AFTER 2 DAYS Med Orders - Current: Current Medications Allopurinol (Zyloprim) 150 mg PO WITHDINNER [facility] Last Admin: 12/01/19 17:45 Dose: 150 mg Betamethasone/Clotrimazole (Lotrisone) 0 gm TOP BID [facility] Last Admin: 12/02/19 09:33 Dose: 1 applic Escitalopram Oxalate (Lexapro) 20 mg PO DAILY [facility] Last Admin: 12/02/19 09:32 Dose: 20 mg Escitalopram Oxalate (Lexapro) 10 mg PO DAILY [facility] Last Admin: 12/02/19 09:31 Dose: 10 mg Furosemide (Lasix) 40 mg PO DAILY [facility] Last Admin: 12/02/19 09:35 Dose: 40 mg Isosorbide Mononitrate (Imdur) 30 mg PO DAILY [facility] Last Admin: 12/02/19 09:32 Dose: 30 mg Levofloxacin (Levaquin) 250 mg PO Q24H [facility] Lisinopril (Prinivil) 5 mg PO DAILY [facility] Last Admin: 12/02/19 10:30 Dose: 5 mg Lorazepam (Ativan) 1 mg PO BEDTIME [facility] Last Admin: 12/01/19 20:05 Dose: 1 mg Metoprolol Succinate (Toprol Xl) 100 mg PO BEDTIME [facility] Last Admin: 12/01/19 20:06 Dose: 100 mg Nitroglycerin (Nitrostat) 0.4 mg SL Q5M PRN PRN Reason: Chest Pain Pantoprazole Sodium (Protonix) 40 mg PO ACBREAKFAST [facility] Last Admin: 12/02/19 06:29 Dose: 40 mg Sodium Chloride (Saline Flush) 10 ml FLUSH ASDIRECTED PRN PRN Reason: Keep Vein Open Last Admin: 12/01/19 15:15 Dose: 10 ml Tamsulosin HCl (Flomax) 0.4 mg PO WITHDINNER [facility] Last Admin: 12/01/19 17:45 Dose: 0.4 mg Tramadol HCl (Ultram) 50 mg PO Q6H PRN PRN Reason: Pain Last Admin: 12/02/19 06:32 Dose: 50 mg Discontinued Medications Acetaminophen/Diphenhydramine HCl (Tylenol Pm Extra Strength) 2 tab PO BEDTIME [facility] Enoxaparin Sodium (Lovenox) 40 mg SUBCUT Q24H [facility] Last Admin: 11/30/19 21:06 Dose: 40 mg Sodium Chloride (Normal Saline) 1,000 mls @ 125 mls/hr IV ASDIRECTED [facility] Last Admin: 11/30/19 00:19 Dose: 125 mls/hr Levofloxacin/Dextrose 500 mg/ (Premix) 100 mls @ 100 mls/hr IV Q24H [facility] Last Admin: 11/29/19 14:58 Dose: 100 mls/hr Levofloxacin/Dextrose (Levaquin In D5w 250 Mg/50 Ml) 50 mls @ 50 mls/hr IV Q24H [facility] Last Admin: 12/01/19 14:13 Dose: 50 mls/hr
[2019-12-02] MEDS ORDERED: Levofloxacin 250 MG Tab PO SCH (14:00)
== END 2019-12-02 12:44 | disposition swing bed (61) | DRG 194 ==
LOC: FB.MS 14:05
PROVIDERS: ADMIT Family Medicine; ATTEND Family Medicine
DX: J18.9 Pneumonia, unspecified organism (principal); S32.009A Unspecified fracture of unspecified lumbar vertebra, initial encounter for closed fracture; N18.4 Chronic kidney disease, stage 4 (severe); I13.0 Hypertensive heart and chronic kidney disease with heart failure and stage 1 through stage 4 chronic kidney disease, or unspecified chronic kidney disease; J91.8 Pleural effusion in other conditions classified elsewhere; R29.6 Repeated falls; E86.0 Dehydration; Z51.5 Encounter for palliative care; S30.0XXA Contusion of lower back and pelvis, initial encounter; W19.XXXA Unspecified fall, initial encounter; S40.811A Abrasion of right upper arm, initial encounter; E11.22 Type 2 diabetes mellitus with diabetic chronic kidney disease; R04.0 Epistaxis; J30.9 Allergic rhinitis, unspecified; I50.9 Heart failure, unspecified; I25.10 Atherosclerotic heart disease of native coronary artery without angina pectoris; E78.00 Pure hypercholesterolemia, unspecified; I73.9 Peripheral vascular disease, unspecified; I34.0 Nonrheumatic mitral (valve) insufficiency; I70.1 Atherosclerosis of renal artery; G89.29 Other chronic pain; M54.9 Dorsalgia, unspecified; M10.9 Gout, unspecified; F41.9 Anxiety disorder, unspecified; F32.9 Major depressive disorder, single episode, unspecified; D50.9 Iron deficiency anemia, unspecified; Z96.49 Presence of other endocrine implants; Z90.89 Acquired absence of other organs; Z95.5 Presence of coronary angioplasty implant and graft; Z88.5 Allergy status to narcotic agent; Z88.8 Allergy status to other drugs, medicaments and biological substances; Z88.0 Allergy status to penicillin; Z79.84 Long term (current) use of oral hypoglycemic drugs; Z79.899 Other long term (current) drug therapy; I25.2 Old myocardial infarction; Z86.010 Personal history of colon polyps; Z90.49 Acquired absence of other specified parts of digestive tract; Z87.891 Personal history of nicotine dependence
CPT/HCPCS: 36415; 80048; 80053; 82962; 83880; 85025; 87040; 87070; 87077; 87205; 97110-GP; 97116-GP; 97161-GP; 97165-GO; 97530-GO; A9270-GY; J1650; J1956; J7030

== ENCOUNTER 2019-12-02 12:45 | Inpatient (IN) | payer MEDICARE, OTHER ==
[2019-12-02] MEDS ORDERED: traMADol 50 MG Tab PO PRN (15:04)
[2019-12-02] MEDS ORDERED: Nitroglycerin 0.4 MG Tab.SL SL PRN (15:04)
[2019-12-02] MEDS ORDERED: Levofloxacin 250 MG Tab PO SCH (16:00)
[2019-12-02] MEDS: Allopurinol 300 MG Tab PO SCH (18:00)
[2019-12-02] MEDS: Tamsulosin 0.4 MG Cap.ER PO SCH (18:00)
[2019-12-02] MEDS: glyBURIDE 5 MG Tab PO SCH (18:00)
[2019-12-02] MEDS: LORazepam 1 MG Tab PO SCH (20:29)
[2019-12-02] MEDS: Metoprolol Succinate 100 MG Tab.ER PO SCH (20:30)
[2019-12-02] MEDS: Betamethasone Dipropionate/Clotrimazole 0.05-1% Crm 15 GM Tube TOP SCH (20:31)
[2019-12-03] MEDS ORDERED: Pantoprazole 40 MG Tab.CR PO SCH (06:00)
[2019-12-03] MEDS ORDERED: Furosemide 40 MG Tab PO SCH ×2 (09:00→21:00)
[2019-12-03] MEDS: Isosorbide Mononitrate 30 MG Tab.ER PO SCH (09:29)
[2019-12-03] MEDS: Escitalopram 10 MG Tab PO SCH (09:30)
[2019-12-03] MEDS: Lisinopril 5 MG Tab PO SCH (09:31)
[2019-12-03] MEDS: Escitalopram 20 MG Tab PO SCH (09:31)
[2019-12-03] MEDS: Betamethasone Dipropionate/Clotrimazole 0.05-1% Crm 15 GM Tube TOP SCH ×2 (09:31→21:14)
[2019-12-03] MEDS ORDERED: Metolazone 2.5 MG Tab PO ONE (10:53)
[2019-12-03] MEDS: glyBURIDE 5 MG Tab PO SCH (17:09)
[2019-12-03] MEDS: Allopurinol 300 MG Tab PO SCH (17:09)
[2019-12-03] MEDS: Tamsulosin 0.4 MG Cap.ER PO SCH (17:10)
--- NOTE | 2019-12-03 17:21 | HP ---
ADMISSION DATE: 12/02/2019 HISTORY: Mr. Smith is an 79-year-old patient who is admitted now to swing bed at the [facility] after an acute care hospitalization for weakness and falls. He was seen by Melo Velásquez at [facility] and admitted after a recent fall. He has had dyspnea, weakness, recent upper respiratory infection, and chest x-ray at the clinic suggestive of pleural effusion. The patient was admitted to acute care and treated with Levaquin for presumptive pneumonia. He had x-rays done, which showed compression fractures of his spine, and lab showed a proBNP of 42,000. Echocardiogram was ordered, and he was started on furosemide and lisinopril. The patient is examined in his bed this morning in swing bed. He is lying on his side with his eyes closed and essentially refusing all of his medications, refusing his echocardiogram, and he is not willing to give a treatment other than saying he wants to sleep. No further history is obtainable from the patient at this time. PHYSICAL EXAMINATION: VITAL SIGNS: Blood pressure 121/61, pulse 63. He is afebrile. Weight 214 pounds, this is up approximately 6 pounds from his admission weight. Further exam was limited by his lack of cooperation, but included a regular pulse, easy respirations, no apparent abdominal tenderness, and edema in his feet. ASSESSMENT: 1. Congestive heart failure with pleural effusion. 2. Progressive weakness with frequent falls. 3. Type 2 diabetes. 4. Chronic kidney disease. 5. Compression fractures of the spine. 6. History of hypertension. 7. BPH. 8. Depression. PLAN: We will discontinue the echocardiogram since the patient is refusing at this time. We will continue to try to work with therapy to improve his strength. He is wanting to go home with his , but at this time would be very difficult to manage without additional therapy and consideration is being given to assisted living. At this time, he is declining medications, but starting tomorrow morning, we will try again with additional diuresis. We will provide palliative care measures for Mr. Smith and his underlying significant medical problems as well. /[id number] RO/MODL
[2019-12-03] MEDS: Metoprolol Succinate 100 MG Tab.ER PO SCH (21:13)
[2019-12-03] MEDS: LORazepam 1 MG Tab PO SCH (21:30)
[2019-12-04] MEDS ORDERED: Metolazone 2.5 MG Tab PO ONE (07:00)
[2019-12-04] MEDS: Furosemide 80 MG Tab PO SCH (09:16)
[2019-12-04] MEDS: Escitalopram 20 MG Tab PO SCH (09:16)
[2019-12-04] MEDS: Isosorbide Mononitrate 30 MG Tab.ER PO SCH (09:16)
[2019-12-04] MEDS: Betamethasone Dipropionate/Clotrimazole 0.05-1% Crm 15 GM Tube TOP SCH ×2 (09:16→20:44)
[2019-12-04] MEDS: Escitalopram 10 MG Tab PO SCH (09:16)
[2019-12-04] MEDS: Lisinopril 5 MG Tab PO SCH (09:17)
[2019-12-04] MEDS ORDERED: Sodium Chloride 0.9% 10 ML Syringe FLUSH PRN (17:17)
[2019-12-04] MEDS: Allopurinol 300 MG Tab PO SCH (17:25)
[2019-12-04] MEDS: Tamsulosin 0.4 MG Cap.ER PO SCH (17:25)
[2019-12-04] MEDS: Dextrose 5%-0.9% NaCl 1,000 ML IV SCH (17:38)
[2019-12-04] MEDS: LORazepam 1 MG Tab PO SCH (21:20)
[2019-12-04] MEDS: Metoprolol Succinate 100 MG Tab.ER PO SCH (21:21)
[2019-12-05] MEDS: traMADol 50 MG Tab PO PRN (00:19)
[2019-12-05] MEDS: Dextrose 5%-0.9% NaCl 1,000 ML IV SCH (07:22)
[2019-12-05] MEDS: Isosorbide Mononitrate 30 MG Tab.ER PO SCH (08:00)
[2019-12-05] MEDS: Escitalopram 20 MG Tab PO SCH (08:00)
[2019-12-05] MEDS: Furosemide 80 MG Tab PO SCH (08:00)
[2019-12-05] MEDS: Betamethasone Dipropionate/Clotrimazole 0.05-1% Crm 15 GM Tube TOP SCH (08:00)
[2019-12-05] MEDS: Escitalopram 10 MG Tab PO SCH (08:00)
[2019-12-05] MEDS: Lisinopril 5 MG Tab PO SCH (08:00)
[2019-12-05] MEDS ORDERED: Metolazone 2.5 MG Tab PO ONE (10:15)
[2019-12-05] MEDS: Allopurinol 300 MG Tab PO SCH (17:01)
[2019-12-05] MEDS: Tamsulosin 0.4 MG Cap.ER PO SCH (17:01)
[2019-12-05] MEDS: Metoprolol Succinate 100 MG Tab.ER PO SCH (20:00)
--- NOTE | 2019-12-06 09:19 | PN ---
DATE SEEN: 12/04/2019 HISTORY: Cm is an 79-year-old man with type 2 diabetes, CHF, chronic kidney disease stage 3, hypertension, and depression. He had been having progressive weakness, multiple falls, and general decline in health at home. He was brought to the emergency room and admitted and was found to have a right pleural effusion with massive cardiomegaly and CHF. He has had 2 episodes of hypoglycemia and this morning his blood sugar was down into the 20s. He was able to be resuscitated from this low blood sugar with oral intake of juice and carbohydrate. He is examined in his bed this morning. PHYSICAL EXAMINATION: GENERAL: He is lethargic, but will answer questions with brief answers. VITAL SIGNS: Blood pressure 150/53, pulse 66, respirations 18, O2 saturation 98% on room air, weight 214 pounds 2 days ago. SKIN: Shows no rash. HEENT: Shows mouth to be dry. LUNGS: Have distant breath sounds. Slight rales are heard at both bases. HEART: Regular. ABDOMEN: Soft and nontender. EXTREMITIES: Show no edema at the ankles. ASSESSMENT: 1. Congestive heart failure with pleural effusion. 2. Generalized weakness with decline in strength and ambulatory ability. 3. Depression. 4. Hypertension. 5. Benign prostatic hyperplasia. 6. Type 2 diabetes, on glyburide with hypoglycemic episodes. PLAN: It is not clear if some of these hypoglycemic episodes may have been contributing to his multiple falls and weakness at home. I have stopped his glyburide now. We will continue to monitor blood sugars. He has been making progress in physical therapy with ambulation. We will continue this and reassess his ability to go home with his over the next several days. /[id number] KOBE/MIGUELINA
[2019-12-06] MEDS: Isosorbide Mononitrate 30 MG Tab.ER PO SCH (10:58)
[2019-12-06] MEDS: Furosemide 80 MG Tab PO SCH (10:59)
[2019-12-06] MEDS: Escitalopram 10 MG Tab PO SCH (10:59)
[2019-12-06] MEDS: Escitalopram 20 MG Tab PO SCH (11:00)
[2019-12-06] MEDS: Lisinopril 5 MG Tab PO SCH (11:00)
[2019-12-06] MEDS: traMADol 50 MG Tab PO PRN ×2 (11:05→21:59)
[2019-12-06] MEDS: Tamsulosin 0.4 MG Cap.ER PO SCH (20:56)
[2019-12-06] MEDS: Allopurinol 300 MG Tab PO SCH (20:57)
[2019-12-06] MEDS: Metoprolol Succinate 100 MG Tab.ER PO SCH (20:58)
[2019-12-07] MEDS: traMADol 50 MG Tab PO PRN ×2 (06:20→15:54)
[2019-12-07] MEDS: Escitalopram 10 MG Tab PO SCH (08:00)
[2019-12-07] MEDS: Isosorbide Mononitrate 30 MG Tab.ER PO SCH (08:00)
[2019-12-07] MEDS: Furosemide 80 MG Tab PO SCH ×2 (08:00→18:58)
[2019-12-07] MEDS: Escitalopram 20 MG Tab PO SCH (08:00)
[2019-12-07] MEDS: Lisinopril 5 MG Tab PO SCH (08:00)
--- NOTE | 2019-12-07 12:36 | CR ---
INDICATION: Followup pneumonia. CHEST, 2 VIEWS: AP and lateral views of the chest, 12/07/19, were compared with 11/17/19 and 03/10/18. Increasing infiltrate is noted in the right midlung field and lung base with marked elevation of the right hemidiaphragm, at least partly anatomic. Some atelectatic change could also be present at the right lower lung field. Infiltrate is also noted in the left lower lung field and is relatively minimal compared with the right. The heart appeared enlarged with post median sternotomy change. Pulmonary vasculature is somewhat indistinct raising question of CHF. The aorta is tortuous and calcified. Degenerative changes are noted in the spine. IMPRESSION: 1. Increasing severity of parenchymal change at the right lower lung field and midlung field with continued minimal infiltrate and/or fibrosis at the left lower lung field. 2. ASHD with cardiomegaly and possible minimal or early CHF. Interstitial lung edema could also be present to a mild degree versus interstitial fibrosis. MTDD
[2019-12-07] MEDS ORDERED: Metolazone 5 MG Tab PO ONE (16:59)
[2019-12-07] MEDS: Tamsulosin 0.4 MG Cap.ER PO SCH (17:04)
[2019-12-07] MEDS: Allopurinol 300 MG Tab PO SCH (17:04)
[2019-12-07] MEDS: Metoprolol Succinate 100 MG Tab.ER PO SCH ×2 (21:33→21:42)
[2019-12-08] MEDS ORDERED: Piperacillin/Tazobactam 2.25 GM in Sodium Chloride 0.9% 50 ML IV SCH (07:15)
[2019-12-08] MEDS ORDERED: Piperacillin/Tazobactam 3.375 GM in Sodium Chloride 0.9% 50 ML IV SCH (07:15)
[2019-12-08] MEDS ORDERED: cefTRIAXone 1 GM in Sodium Chloride 0.9% 50 ML IV SCH (08:30)
[2019-12-08] MEDS: Furosemide 80 MG Tab PO SCH ×2 (09:17→13:35)
[2019-12-08] MEDS: cefTRIAXone 1 GM Vial IVPUSH SCH ×2 (09:17→10:16)
[2019-12-08] MEDS: Isosorbide Mononitrate 30 MG Tab.ER PO SCH (09:18)
[2019-12-08] MEDS: Escitalopram 20 MG Tab PO SCH (09:27)
[2019-12-08] MEDS: Escitalopram 10 MG Tab PO SCH (09:27)
[2019-12-08] MEDS: Lisinopril 5 MG Tab PO SCH (09:28)
[2019-12-08] MEDS: traMADol 50 MG Tab PO PRN (13:36)
[2019-12-08] MEDS ORDERED: Ondansetron 4 MG Tab.DIS PO PRN (19:20)
[2019-12-08] MEDS: Allopurinol 300 MG Tab PO SCH (20:13)
[2019-12-08] MEDS: Tamsulosin 0.4 MG Cap.ER PO SCH (20:13)
[2019-12-08] MEDS: Metoprolol Succinate 50 MG Tab.ER PO SCH (20:14)
--- NOTE | 2019-12-09 05:29 | PN ---
DATE SEEN: 12/08/2019 HISTORY: Mr. Smith is an 79-year-old man from [place], who was admitted to acute care because of multiple falls, weakness, and general decline. He was brought to the emergency room where he was found to have massive cardiomegaly, CHF, and a pleural effusion. He also had 2 episodes of severe hypoglycemia. He has been treated with diuresis. He was on antibiotic for pneumonia and his glyburide was discontinued. The patient's weight on admission on November 29 was 208 pounds. This increased to 214 pounds during admission and current weight is pending. Repeat chest x-ray yesterday showed extensive pulmonary fluid. He has 3+ pitting edema to his legs, and generalized weakness. PHYSICAL EXAMINATION: GENERAL: He is examined in his chair this morning. He has a partially adhered dressing to the right forearm at the site of his skin tear. VITAL SIGNS: Blood pressure 115/50, pulse 53, respirations 18, O2 saturation 97% on room air, temperature 98, weight is pending. SKIN: Shows the dry dressing on the skin tear, right arm. He also has ecchymoses over his arms and deep tendon rubor of his legs. HEENT: Shows his mouth to be dry. LUNGS: Have good air movement to the bases. No focal consolidations heard. HEART: Regular, but bradycardic. No murmur is heard. ABDOMEN: Soft. EXTREMITIES: Show 3+ pitting edema to the upper tibias. LABORATORY: Urinalysis is clear. Accu-Cheks are running in the 100 to 200 range. Last electrolytes normal. BUN 26, creatinine 1.9, and BNP 17,581. This is down from 42,000 back on the . ASSESSMENT: 1. Severe congestive heart failure with bilateral infiltrates, also possible pneumonia, although clinically he does not have bacterial pneumonia. 2. Chronic congestive heart failure with low cardiac output with recent echocardiogram returned with an ejection fraction of 30%. This is a 10% decline from a year and a half ago. 3. Chronic essential hypertension. 4. Hyperuricemia. 5. History of type 2 diabetes, currently off diabetes medications. 6. Benign prostatic hyperplasia. 7. Arteriosclerotic heart disease. 8. Depression. 9. Chronic kidney disease. 10.History of spine compression fractures. PLAN: We will continue to faby Pabon, continue with therapy for strengthening. I anticipate at least another week of physical therapy with hopes to return to home with his . If not, longer term care placement will be necessary. /[id number] KOBE/MIGUELINA
[2019-12-09] MEDS: traMADol 50 MG Tab PO PRN ×3 (08:12→22:07)
[2019-12-09] MEDS: Furosemide 80 MG Tab PO SCH (08:13)
[2019-12-09] MEDS: cefTRIAXone 1 GM Vial IVPUSH SCH (08:13)
[2019-12-09] MEDS: Sodium Chloride 0.9% 10 ML Syringe FLUSH PRN (08:13)
[2019-12-09] MEDS: Escitalopram 20 MG Tab PO SCH (09:23)
[2019-12-09] MEDS: Escitalopram 10 MG Tab PO SCH (09:23)
--- NOTE | 2019-12-09 12:07 | CR ---
INDICATION: Followup pneumonia. CHEST, 2 VIEWS: AP and lateral views of the chest, 12/09/19, were compared with 12/07/19 and 11/17/19. Pleural parenchyma changes are still noted at the right lung base and, allowing for a better inspiration, appear stable or slightly diminished. Patchy pneumonia still can be present at the left lower lobe. A new acute process was not seen. MTDD
[2019-12-09] MEDS: Isosorbide Mononitrate 30 MG Tab.ER PO SCH (15:17)
[2019-12-09] MEDS: Lisinopril 5 MG Tab PO SCH (15:19)
[2019-12-09] MEDS: Allopurinol 300 MG Tab PO SCH (18:48)
[2019-12-09] MEDS: Tamsulosin 0.4 MG Cap.ER PO SCH (18:48)
[2019-12-09] MEDS: Metoprolol Succinate 50 MG Tab.ER PO SCH (20:01)
[2019-12-10] MEDS: cefTRIAXone 1 GM Vial IVPUSH SCH (08:46)
[2019-12-10] MEDS: Furosemide 80 MG Tab PO SCH (08:46)
[2019-12-10] MEDS: Escitalopram 20 MG Tab PO SCH (08:47)
[2019-12-10] MEDS: Escitalopram 10 MG Tab PO SCH (08:47)
[2019-12-10] MEDS: Sodium Chloride 0.9% 10 ML Syringe FLUSH PRN (08:56)
[2019-12-10] MEDS: traMADol 50 MG Tab PO PRN (09:07)
[2019-12-10] MEDS: LORazepam 0.5 MG Tab PO PRN (12:32)
[2019-12-10] MEDS: Isosorbide Mononitrate 30 MG Tab.ER PO SCH (15:22)
[2019-12-10] MEDS: Lisinopril 5 MG Tab PO SCH (15:22)
[2019-12-10] MEDS: Allopurinol 300 MG Tab PO SCH (19:00)
[2019-12-10] MEDS: Tamsulosin 0.4 MG Cap.ER PO SCH (19:00)
[2019-12-10] MEDS: Metoprolol Succinate 50 MG Tab.ER PO SCH (20:27)
[2019-12-11] MEDS: traMADol 50 MG Tab PO PRN ×2 (03:17→17:45)
[2019-12-11] MEDS: LORazepam 0.5 MG Tab PO PRN ×2 (07:25→20:43)
--- NOTE | 2019-12-11 07:40 | PN ---
DATE SEEN: 12/10/2019 HISTORY: Cm is an 79-year-old man who was admitted with weakness, increasing falls to acute care. He was found to have an exacerbation of congestive heart failure and had previously had pneumonia. He was discharged to a swing bed on 12/02/2019, where he remains. He has had diuresis of over 20 pounds in the last week. His breathing is improved. He is confused at times and uncooperative at times with required testing. Today, he has been having more shaking, but no fever and according to the family, he has these episodes at home as well along with anxiety. PHYSICAL EXAMINATION: GENERAL: He is alert. He does answer questions, but is a poor historian. VITAL SIGNS: Blood pressure 135/70, pulse 75 and regular, respirations 18, O2 saturation 98% on room air, temperature 97.6, weight 189 pounds. This compares to a weight of 214 pounds on 12/02/2019. HEENT: Mouth is dry. LUNGS: Have fine rales at both bases, but distant breath sounds are present. HEART: Regular without murmur heard. ABDOMEN: Soft. EXTREMITIES: Show 2+ edema of the ankles, now much improved. ASSESSMENT: 1. Severe congestive heart failure, improving. 2. Right lower lobe infiltrate, question bacterial pneumonia. 3. Moderate cognitive deficits. 4. Anxiety and depression. 5. History of hypertension. 6. Benign prostatic hyperplasia. 7. Episode of anxiety. 8. Chronic back pain. PLAN: I have added back lorazepam 0.5 mg t.i.d. p.r.n. We will continue with therapy with the hopes of getting Cm well enough to return home and consider long-term care if not. /[id number] KOBE/BISHNUL
[2019-12-11] MEDS ORDERED: Azithromycin 500 MG Tab PO ONE (09:26)
[2019-12-11] MEDS: cefTRIAXone 1 GM Vial IVPUSH SCH (09:33)
[2019-12-11] MEDS: Isosorbide Mononitrate 30 MG Tab.ER PO SCH ×2 (09:33→20:42)
[2019-12-11] MEDS: Escitalopram 20 MG Tab PO SCH (09:34)
[2019-12-11] MEDS: Escitalopram 10 MG Tab PO SCH (09:34)
[2019-12-11] MEDS: Furosemide 80 MG Tab PO SCH (09:34)
[2019-12-11] MEDS: Lisinopril 5 MG Tab PO SCH (09:34)
[2019-12-11] MEDS: Sodium Chloride 0.9% 10 ML Syringe FLUSH PRN (09:36)
[2019-12-11] MEDS ORDERED: Azithromycin 250 MG Tab PO ONE (17:45)
[2019-12-11] MEDS: Tamsulosin 0.4 MG Cap.ER PO SCH (17:46)
[2019-12-11] MEDS: Allopurinol 300 MG Tab PO SCH (17:46)
[2019-12-11] MEDS: Metoprolol Succinate 50 MG Tab.ER PO SCH (20:42)
[2019-12-12] MEDS: traMADol 50 MG Tab PO PRN ×2 (01:27→10:12)
[2019-12-12] MEDS ORDERED: Azithromycin 250 MG Tab PO SCH (09:00)
[2019-12-12] MEDS ORDERED: Furosemide 40 MG Tab PO SCH (09:00)
[2019-12-12] MEDS: cefTRIAXone 1 GM Vial IVPUSH SCH (10:18)
[2019-12-12] MEDS: Sodium Chloride 0.9% 10 ML Syringe FLUSH PRN (10:18)
[2019-12-12] MEDS: Escitalopram 20 MG Tab PO SCH (10:47)
[2019-12-12] MEDS: Escitalopram 10 MG Tab PO SCH (10:47)
[2019-12-12] MEDS: Lisinopril 5 MG Tab PO SCH (10:47)
[2019-12-12] MEDS: LORazepam 0.5 MG Tab PO PRN (10:50)
[2019-12-12] MEDS: Tamsulosin 0.4 MG Cap.ER PO SCH (17:46)
[2019-12-12] MEDS: Allopurinol 300 MG Tab PO SCH (17:46)
[2019-12-12] MEDS: Metoprolol Succinate 50 MG Tab.ER PO SCH (20:03)
[2019-12-12] MEDS: Isosorbide Mononitrate 30 MG Tab.ER PO SCH (20:04)
[2019-12-13] MEDS: LORazepam 0.5 MG Tab PO PRN ×3 (02:10→20:11)
[2019-12-13] MEDS: traMADol 50 MG Tab PO PRN ×2 (02:10→14:42)
[2019-12-13] MEDS ORDERED: Haloperidol 5 MG Tab PO ONE (02:39)
[2019-12-13] MEDS ORDERED: Morphine 4 MG/ML VIAL IVPUSH ONE (03:11)
[2019-12-13] MEDS: Sodium Chloride 0.9% 10 ML Syringe FLUSH PRN ×3 (03:42→15:07)
[2019-12-13] MEDS ORDERED: Haloperidol Lactate 5 MG/ML SDV ONE (07:49)
[2019-12-13] MEDS ORDERED: Haloperidol Lactate 5 MG/ML SDV IV ONE ×2 (07:53→09:10)
[2019-12-13] MEDS ORDERED: Sodium Chloride 0.9% 1,000 ML IV SCH ×2 (09:30→14:45)
[2019-12-13] MEDS: Escitalopram 20 MG Tab PO SCH (10:26)
[2019-12-13] MEDS: Escitalopram 10 MG Tab PO SCH (10:26)
[2019-12-13] MEDS: Lisinopril 5 MG Tab PO SCH (10:27)
--- NOTE | 2019-12-13 11:51 | PN ---
DATE SEEN: 12/13/2019 HISTORY: Mr. Smith is an 79-year-old man, who was admitted to acute care because of falls, weakness, exacerbation of CHF and a history of pneumonia. He was treated in acute care with IV antibiotics, diuresis, and was discharged to swing bed on 12/02/2019. He was slowly instantly diuresed down to a weight of 184 pounds from 214 pounds on the day of admission. His mental status fluctuated and he had periods of confusion and agitation to delirium. During the night, he had a severe episode of agitation, delirium, was fighting, striking out, etc. He was given lorazepam orally, Haldol orally, morphine IV, Seroquel orally, and has had to have an attendant with him continuously overnight. He is examined in his bed this morning. He is drowsy, but wakes up confused and combative. PHYSICAL EXAMINATION: VITAL SIGNS: Blood pressure last evening 113/54. Weight this morning 184 pounds. SKIN: Shows no new rash or sign of trauma. He moves his arms and legs spontaneously. LUNGS: Have good air movement to the bases with basilar rales. HEART: Regular without murmur or gallop. ABDOMEN: Soft and nontender. EXTREMITIES: Show no edema at the ankles. LABORATORY DATA: Urinalysis collected today is clear. Last laboratory 3 days ago; hemoglobin 11.9, sodium 127, BUN of 44, and creatinine 2.5. BNP 16,000. ASSESSMENT: 1. Delirium, superimposed on dementia. 2. Severe congestive heart failure. 3. Chronic kidney disease with azotemia. 4. Hyponatremia. PLAN: Labs will be drawn this morning. He is given Haldol additionally IV for sedation. We will follow up labs and continue to manage the patient as able. /[id number] KOBE/BISHNUL
[2019-12-13] MEDS ORDERED: Morphine 2 MG/ML SYRINGE IVPUSH PRN (14:59)
[2019-12-13] MEDS: Haloperidol Lactate 5 MG/ML SDV IVPUSH PRN ×3 (15:06→23:44)
[2019-12-13] MEDS: Allopurinol 300 MG Tab PO SCH (17:50)
[2019-12-13] MEDS: Tamsulosin 0.4 MG Cap.ER PO SCH (17:50)
[2019-12-13] MEDS ORDERED: Metoprolol Succinate 25 MG Tab.ER PO SCH (21:00)
[2019-12-13] MEDS: Morphine 4 MG/ML VIAL IVPUSH PRN (21:48)
[2019-12-14] MEDS: Morphine 4 MG/ML VIAL IVPUSH PRN ×3 (02:06→08:05)
[2019-12-14] MEDS: Haloperidol Lactate 5 MG/ML SDV IVPUSH PRN (03:58)
[2019-12-14] MEDS: Sodium Chloride 0.9% 10 ML Syringe FLUSH PRN ×9 (05:02→21:17)
[2019-12-14] MEDS ORDERED: Sodium Chloride 0.9% 1,000 ML IV SCH (07:45)
[2019-12-14] MEDS ORDERED: Morphine 10 MG/ML SDV IVPUSH PRN (08:09)
[2019-12-14] MEDS ORDERED: Diazepam 5 MG Tab PRN (08:20)
[2019-12-14] MEDS ORDERED: LORazepam 1 MG Tab PRN ×2 (09:53→14:50)
[2019-12-14] MEDS ORDERED: Morphine 10 MG/0.5 ML Oral Syringe SL PRN ×2 (10:00→10:33)
[2019-12-14] MEDS: Escitalopram 20 MG Tab PO SCH (10:35)
[2019-12-14] MEDS ORDERED: Hyoscyamine 0.125 MG Tab.SL PO PRN (14:53)
[2019-12-15] MEDS: Sodium Chloride 0.9% 10 ML Syringe FLUSH PRN ×2 (01:07→05:20)
[2019-12-15] MEDS: Morphine 10 MG/0.5 ML Oral Syringe SL PRN ×9 (02:53→17:48)
[2019-12-15] MEDS ORDERED: Bisacodyl 10 MG Supp RECTAL PRN (08:01)
[2019-12-15] MEDS: Acetaminophen 650 MG Supp RECTAL PRN ×2 (10:14→15:00)
[2019-12-15 22:49] VITALS: BP 75/49
[2019-12-16] MEDS: Morphine 10 MG/0.5 ML Oral Syringe SL PRN ×2 (06:24→07:20)
[2019-12-16 07:22] VITALS: PULSE 99
--- NOTE | 2019-12-16 09:06 | DISCH ---
FINAL SUMMARY DISCHARGE DATE: 12/16/2019 HISTORY: Mr. Smith is an 79-year-old man who was admitted to acute care at [facility] with bibasilar pneumonia and a severe exacerbation of congestive heart failure. He was treated with IV antibiotics, IV diuresis, and was switched to swing bed for further recuperation. During his swing bed hospitalization, he had major diuresis, but still had periods of hypoxia. He went in and out of severe delirium and continued to need pain medications for chronic back pain. The patient was placed on comfort palliative cares and he on the morning of 12/16/2019. PRIMARY FINAL DIAGNOSES: Multiorgan failure due to chronic congestive heart failure, heart disease, and dementia. Family is notified and arrangements are pending. /[id number] KOBE/MIGUELINA
== END 2019-12-16 07:35 | disposition expired | DRG 948 ==
LOC: FB.MS 12:45
PROVIDERS: ADMIT Family Medicine; ATTEND Family Medicine
DX: R53.1 Weakness (principal); I13.0 Hypertensive heart and chronic kidney disease with heart failure and stage 1 through stage 4 chronic kidney disease, or unspecified chronic kidney disease; N18.4 Chronic kidney disease, stage 4 (severe); F03.91 Unspecified dementia, unspecified severity, with behavioral disturbance; E87.1 Hypo-osmolality and hyponatremia; M48.50XA Collapsed vertebra, not elsewhere classified, site unspecified, initial encounter for fracture; I50.22 Chronic systolic (congestive) heart failure; E11.22 Type 2 diabetes mellitus with diabetic chronic kidney disease; Z51.5 Encounter for palliative care; F32.9 Major depressive disorder, single episode, unspecified; R29.6 Repeated falls; F09 Unspecified mental disorder due to known physiological condition; I34.0 Nonrheumatic mitral (valve) insufficiency; M19.90 Unspecified osteoarthritis, unspecified site; M10.9 Gout, unspecified; N40.1 Benign prostatic hyperplasia with lower urinary tract symptoms; N39.498 Other specified urinary incontinence; E78.00 Pure hypercholesterolemia, unspecified; R41.0 Disorientation, unspecified; E86.0 Dehydration; Z96.649 Presence of unspecified artificial hip joint; F41.9 Anxiety disorder, unspecified; I25.10 Atherosclerotic heart disease of native coronary artery without angina pectoris; E11.649 Type 2 diabetes mellitus with hypoglycemia without coma; M54.9 Dorsalgia, unspecified; G89.29 Other chronic pain; R09.02 Hypoxemia; Z79.84 Long term (current) use of oral hypoglycemic drugs; Z79.899 Other long term (current) drug therapy; Z87.891 Personal history of nicotine dependence; Z95.5 Presence of coronary angioplasty implant and graft; I25.2 Old myocardial infarction; Z88.0 Allergy status to penicillin; Z88.8 Allergy status to other drugs, medicaments and biological substances
CPT/HCPCS: 36415; 71046; 80053; 80069; 81001; 82140; 82947; 82962; 83880; 85018; 85025; 93306; 94760; 97110-GO; 97110-GP; 97116-GP; 97530-GO; 97535-GO; 97542-GO; A9270-GY; J0696; J1630; J2270; J3360; J7030